=== PATIENT | male | born 1940 | race Caucasian/White ===

== ENCOUNTER 2017-07-14 07:58 | Day surgery (SDC) | payer MEDICARE, BC ==
[~2017-07-14] VITALS: Ht 175.3 cm; Wt 121.8 kg
[~2017-07-14 07:58] MED LIST: ATOR10 PO; BENA20 PO; CHOL10002 PO; CYAN500; Cialis20 MG PO; DIABETIC VITAMIN; FURO40 PO; GLYB5 PO; Humalog100 UNIT/1 SC; INSULANI SC; INSULANPEN SC; IRON256 MG; K-Dur20 MEQ; LOSA50 PO; LOSHYD PO; METF500 PO; METO2.5 PO; Magnesium500 MG; OMEG1CAP30 PO; PIOG45 PO
[2017-07-14] MEDS ORDERED: ASPI81CH (08:36)
== END 2017-07-14 10:38 | disposition home or self-care (01) ==
LOC: ORSCSDS 07:58
PROVIDERS: Internal Medicine Gastroenterology
PROC: 0DBL8ZX Excision of Transverse Colon, Via Natural or Artificial Opening Endoscopic, Diagnostic (ICD-10-PCS; principal; 2017-07-14 09:15)
DX: Z12.11 Encounter for screening for malignant neoplasm of colon (principal); D12.3 Benign neoplasm of transverse colon; K64.8 Other hemorrhoids; K57.30 Diverticulosis of large intestine without perforation or abscess without bleeding; Z85.038 Personal history of other malignant neoplasm of large intestine; Z86.010 Personal history of colon polyps; I10 Essential (primary) hypertension; E11.9 Type 2 diabetes mellitus without complications; I50.9 Heart failure, unspecified; E78.5 Hyperlipidemia, unspecified; Z95.0 Presence of cardiac pacemaker; Z87.891 Personal history of nicotine dependence; Z79.4 Long term (current) use of insulin; Z79.899 Other long term (current) drug therapy
CPT/HCPCS: 82947; 88305; J1980; J7120

== ENCOUNTER 2017-08-21 10:10 | Observation (INO) | payer MEDICARE, BC ==
[~2017-08-21] VITALS: Ht 175.3 cm; Wt 128.8 kg
[~2017-08-21 10:10] MED LIST changes: +ASPI81CH
[2017-08-21 11:34] LABS: BASOPHILS ABSOLUTE AUTO 0.03 K/mm3 (0.00-0.23); BASOPHILS PERCENT AUTO 0 % (0-2); EOSINOPHILS ABSOLUTE AUTO 0.14 K/mm3 (0.00-0.68); EOSINOPHILS PERCENT AUTO 2 % (0-6); Hematocrit 40.3 % (37.0-53.0); Hemoglobin 13.4 g/dL (13.5-17.5); IMMATURE GRAN ABSOLUTE AUTO 0.02 K/mm3 (0.00-0.10); IMMATURE GRAN PERCENT AUTO 0 % (0-1); LYMPHOCYTES ABSOLUTE AUTO 1.52 K/mm3 (0.84-5.20); LYMPHOCYTES PERCENT AUTO 21 % (21-46); MONOCYTES ABSOLUTE AUTO 0.67 K/mm3 (0.16-1.47); MONOCYTES PERCENT AUTO 9 % (4-13); Mean Corpuscular HGB 28.9 pg (26.0-34.0); Mean Corpuscular HGB Conc 33.3 g/dL (31.5-36.5); Mean Corpuscular Volume 87 fL (80-100); Mean Platelet Volume 9.7 fL (9.1-12.4); NEUTROPHILS ABSOLUTE AUTO 4.95 K/mm3 (1.96-9.15); NEUTROPHILS PERCENT AUTO 68 % (41-73); Platelet Count 263 K/mm3 (150-400); RDW Coefficient Variation 14.5 % (11.7-14.2); RDW Standard Deviation 45.7 fL (35.1-46.3); Red Blood Cell Count 4.64 M/mm3 (4.30-5.90); White Blood Cell Count 7.33 K/mm3 (4.00-11.30)
[2017-08-21] MEDS ORDERED: LOSA50 PO (11:47)
[2017-08-21] MEDS ORDERED: PIOG15 PO (11:47)
[2017-08-21 11:50] LABS: Alanine Aminotransfer (ALT/SGP 42 U/L (12-78); Albumin, Blood 3.8 g/dL (3.4-5.0); Albumin/Globulin Ratio 0.9 (0.8-1.8); Alk Phos 68 U/L (50-136); Anion Gap 10 mmol/L (6-16); Aspartate Aminotrans (AST/SGOT 31 U/L (12-37); Bilirubin, Total 0.8 mg/dL (0.1-1.0); Blood Urea Nitrogen 24 mg/dL (8-24); Bun/Creatinine Ratio 24.1 (12.0-20.0); CO2, Blood 29 mmol/L (21-32); Chloride, Blood 98 mmol/L (98-108); Globulin, Blood 4.2 g/dL (2.2-4.0); Glomerular Filtration Rate >60 (60-); Glucose, Blood 124 mg/dL (70-99); Potassium, Blood 3.3 mmol/L (3.5-5.5); Sodium, Blood 137 mmol/L (136-145); Troponin I <0.015 ng/mL (0.000-0.040)
[2017-08-22 05:35] LABS: Anion Gap 13 mmol/L (6-16); Blood Urea Nitrogen 28 mg/dL (8-24); Bun/Creatinine Ratio 25.5 (12.0-20.0); CO2, Blood 26 mmol/L (21-32); Calcium, Blood 8.6 mg/dL (8.5-10.1); Chloride, Blood 97 mmol/L (98-108); Glomerular Filtration Rate >60 (60-); Glucose, Blood 286 mg/dL (70-99); Potassium, Blood 4.4 mmol/L (3.5-5.5); Sodium, Blood 136 mmol/L (136-145)
[2017-08-22] MEDS ORDERED: CARV6.25 PO (15:37)
[2017-08-22] MEDS ORDERED: ALBU90OI61 INH (15:37)
[2017-08-22] MEDS ORDERED: DULERA 200 MCG/13 GM INH (15:38)
== END 2017-08-22 16:25 | disposition home or self-care (01) ==
LOC: ER 10:10 → MEDS 10:11 → ENPENDDIS 08-22 15:36 → MEDS 08-22 16:25
PROVIDERS: Hospitalist; Physician Assistant
DX: R06.09 Other forms of dyspnea (principal); R09.02 Hypoxemia; I10 Essential (primary) hypertension; E11.9 Type 2 diabetes mellitus without complications; R91.1 Solitary pulmonary nodule; J44.9 Chronic obstructive pulmonary disease, unspecified; J84.9 Interstitial pulmonary disease, unspecified; E78.00 Pure hypercholesterolemia, unspecified; Z86.010 Personal history of colon polyps; Z88.0 Allergy status to penicillin; Z88.8 Allergy status to other drugs, medicaments and biological substances; Z79.82 Long term (current) use of aspirin; Z79.4 Long term (current) use of insulin; Z79.899 Other long term (current) drug therapy; Z87.891 Personal history of nicotine dependence; Z86.718 Personal history of other venous thrombosis and embolism; Z98.42 Cataract extraction status, left eye; Z96.1 Presence of intraocular lens; Z95.0 Presence of cardiac pacemaker; Z98.890 Other specified postprocedural states; Z85.038 Personal history of other malignant neoplasm of large intestine
CPT/HCPCS: 36415; 71046; 71260; 80048; 80053; 82947; 83880; 84484; 85025; 93005; 93010; 93306; 94640; 94760; 96372; 96374; 96376; 99285; G0378; J1650; J1815; J1817; J2920; Q9967

== ENCOUNTER 2019-02-24 08:34 | Day surgery (SDC) | payer MEDICARE ==
[~2019-02-24] VITALS: Ht 175.3 cm; Wt 121.4 kg
[~2019-02-24 08:34] MED LIST changes: +ALBU90OI61 INH; +CARV6.25 PO; +DULERA 200 MCG/13 GM INH; +ENTRESTO 97 MG1 EACH; +METO25ER; +PIOG15 PO
--- NOTE | 2019-02-24 09:58 | NUR ---
02/24/19 0958 Penny Vicente (Ericka BLOOD SUGAR OF [address] LÓPEZ & DR. OLIVO NOTIFIED. DR. LÓPEZ ORDERED 12.5G DEXTROSE 50% IVP. PT DENIES SYMPTOMS, STATES "I FEEL FINE."
== END 2019-02-24 11:50 | disposition home or self-care (01) ==
LOC: ORSCSDS 08:34
PROVIDERS: Internal Medicine Gastroenterology
PROC: 0DBL8ZX Excision of Transverse Colon, Via Natural or Artificial Opening Endoscopic, Diagnostic (ICD-10-PCS; principal; 2019-02-24 10:00)
DX: Z85.038 Personal history of other malignant neoplasm of large intestine (principal); D12.3 Benign neoplasm of transverse colon; K57.30 Diverticulosis of large intestine without perforation or abscess without bleeding; K64.8 Other hemorrhoids; Z86.010 Personal history of colon polyps; E11.9 Type 2 diabetes mellitus without complications; I50.9 Heart failure, unspecified; I10 Essential (primary) hypertension; E78.5 Hyperlipidemia, unspecified; Z95.0 Presence of cardiac pacemaker; Z79.4 Long term (current) use of insulin; Z79.899 Other long term (current) drug therapy; Z87.891 Personal history of nicotine dependence
CPT/HCPCS: 82947; 88305; J2704; J7120; J7799

== ENCOUNTER 2020-04-26 12:45 | Day surgery (SDC) | payer MEDICARE ==
[~2020-04-26] VITALS: Ht 175.3 cm; Wt 116.4 kg
[~2020-04-26 12:45] MED LIST changes: +BASAGLAR K100 UNIT/1; -ENTRESTO 97 MG1 EACH; +ENTRESTO 97 MG1 EACH PO; +FURO20 PO; -INSULANPEN SC; +LOVAZA PO; -METO25ER; +METO25ER PO
--- NOTE | 2020-04-26 14:27 | NUR ---
04/26/20 1427 Gisele Maxwell 2CC NS INSTILLED FOR TRANSVERSE POLYP REMOVAL
== END 2020-04-26 14:47 | disposition home or self-care (01) ==
LOC: ORSCSDS 12:45
PROVIDERS: Internal Medicine Gastroenterology
PROC: 0DBL8ZX Excision of Transverse Colon, Via Natural or Artificial Opening Endoscopic, Diagnostic (ICD-10-PCS; principal; 2020-04-26 15:00)
DX: Z86.010 Personal history of colon polyps (principal); Z85.038 Personal history of other malignant neoplasm of large intestine; D12.3 Benign neoplasm of transverse colon; E11.319 Type 2 diabetes mellitus with unspecified diabetic retinopathy without macular edema; E11.29 Type 2 diabetes mellitus with other diabetic kidney complication; I10 Essential (primary) hypertension; E78.5 Hyperlipidemia, unspecified; N28.9 Disorder of kidney and ureter, unspecified; Z95.0 Presence of cardiac pacemaker; Z79.4 Long term (current) use of insulin; Z79.84 Long term (current) use of oral hypoglycemic drugs; Z79.899 Other long term (current) drug therapy; Z87.891 Personal history of nicotine dependence; J44.9 Chronic obstructive pulmonary disease, unspecified; Z99.81 Dependence on supplemental oxygen
CPT/HCPCS: 82947; 88305; J2704; J7120

== ENCOUNTER → 2021-06-27 | Outpatient (CLI) | payer MEDICARE | LOC: LAB SHORT 18:14 | DX: L08.9 Local infection of the skin and subcutaneous tissue, unspecified (principal); L57.8 Other skin changes due to chronic exposure to nonionizing radiation; L85.3 Xerosis cutis; Z48.02 Encounter for removal of sutures | CPT/HCPCS: 87070; 87077; 87147; 87186; 87205 ==

== ENCOUNTER 2021-08-23 09:23 | Day surgery (SDC) | payer MEDICARE ==
[~2021-08-23] VITALS: Ht 175.3 cm; Wt 108.6 kg
[~2021-08-23 09:23] MED LIST changes: -ASPI81CH; +ASPI81CH PO; -CHOL10002 PO; +VITAMIN D31000 UNI1 PO
[2021-08-23] MEDS ORDERED: MAGNESIUM OXID500 MG PO (10:19)
[2021-08-23] MEDS ORDERED: FURO80 PO (10:20)
[2021-08-23] MEDS ORDERED: POTA10T PO (10:21)
[2021-08-23] MEDS ORDERED: OMEGA-3 FISH O1 EAC6 PO (10:22)
[2021-08-23] MEDS ORDERED: NOVOLOG100 UNIT/2 SC (10:24)
[2021-08-23] MEDS ORDERED: BASAGLAR K100 UNIT/1 SC (10:25)
--- NOTE | 2021-08-23 12:30 | NUR ---
PATIENT RETURNED TO [facility] RECOVERY ROOM A&O. DENIES DISCOMFORT. LEFT PACER SITE DRESSING D&I. NO HEMATOMA, NO BLEEDING. ICE PACK PLACED TO SITE
--- NOTE | 2021-08-23 14:20 | NUR ---
DISCHARGE INSTRUCTIONS ANDPRECAUTIONS DISCUSSED WITH PATIENT. PATIENT VERBALIZED UNDERSTANDING. IV SITE DCED WITH CATHETER IN TACT. LEFT PACER POCKET SOFT AND NONTENDER, NO BRUISING, NO HEMATOMA, NO BLEEDING.
--- NOTE | 2021-08-23 14:40 | NUR ---
PATIENT DISCHARGE HOME. TAKEN TO WAITING CAR VIA WHEELCHAIR BY ERMA CALVIN. LEFT UPPER PACER POCKET SITE UNCHANGED. NO FURTHER QUESTIONS
== END 2021-08-23 14:30 | disposition home or self-care (01) ==
LOC: MHTC 09:23
DX: Z45.010 Encounter for checking and testing of cardiac pacemaker pulse generator [battery] (principal); I42.8 Other cardiomyopathies; I11.0 Hypertensive heart disease with heart failure; I50.9 Heart failure, unspecified; E11.3599 Type 2 diabetes mellitus with proliferative diabetic retinopathy without macular edema, unspecified eye; I25.10 Atherosclerotic heart disease of native coronary artery without angina pectoris; E78.5 Hyperlipidemia, unspecified; E66.9 Obesity, unspecified; Z68.35 Body mass index [BMI] 35.0-35.9, adult; Z79.4 Long term (current) use of insulin; Z88.0 Allergy status to penicillin; Z88.8 Allergy status to other drugs, medicaments and biological substances
CPT/HCPCS: 33228; 99152; 99153; C1781; C1785; J1580; J1644; J2250; J3010; J3370; J7040

== ENCOUNTER 2021-11-17 08:52 | Emergency (ER) | payer MEDICARE ==
[~2021-11-17] VITALS: Ht 175.3 cm; Wt 104.3 kg
[~2021-11-17 08:52] MED LIST changes: +BASAGLAR K100 UNIT/1 SC; +FURO80 PO; +MAGNESIUM250 MG PO; -METO2.5 PO; +METO5 PO; +NOVOLOG100 UNIT/2 SC; +OMEGA-3 FISH O1 EAC6 PO; +POTA10T PO
[2021-11-17] MEDS ORDERED: Prednisone20 MG PO (10:59)
[2021-11-17] MEDS ORDERED: ALBU90OI INH (10:59)
== END 2021-11-17 11:18 | disposition home or self-care (01) ==
LOC: ER 08:52
DX: R06.00 Dyspnea, unspecified (principal); I11.0 Hypertensive heart disease with heart failure; I50.20 Unspecified systolic (congestive) heart failure; E11.9 Type 2 diabetes mellitus without complications; Z88.0 Allergy status to penicillin; Z88.8 Allergy status to other drugs, medicaments and biological substances; Z79.82 Long term (current) use of aspirin; Z79.4 Long term (current) use of insulin; Z79.899 Other long term (current) drug therapy; Z95.0 Presence of cardiac pacemaker
CPT/HCPCS: 78580; A9540

== ENCOUNTER 2022-09-16 19:03 | Inpatient (IN) | payer MEDICARE ==
[~2022-09-16] VITALS: Ht 177.8 cm; Wt 100.0 kg
[~2022-09-16 19:03] MED LIST changes: +ALBU90OI INH; +Prednisone20 MG PO
[2022-09-16] MEDS ORDERED: ENTRESTO 49 MG1 EACH PO (19:44)
[2022-09-16] MEDS ORDERED: ELIQUIS2.5 MG PO (19:45)
[2022-09-16] MEDS ORDERED: TRAZ50 PO (19:45)
[2022-09-16 19:54] LABS: BASOPHILS ABSOLUTE AUTO 0.03 K/mm3 (0.00-0.23); BASOPHILS PERCENT AUTO 1 % (0-2); EOSINOPHILS PERCENT AUTO 2 % (0-6); Hemoglobin 8.4 g/dL (13.5-17.5); IMMATURE GRAN ABSOLUTE AUTO 0.03 K/mm3 (0.00-0.10); IMMATURE GRAN PERCENT AUTO 1 % (0-1); LYMPHOCYTES ABSOLUTE AUTO 0.84 K/mm3 (0.84-5.20); LYMPHOCYTES PERCENT AUTO 15 % (21-46); MONOCYTES ABSOLUTE AUTO 0.67 K/mm3 (0.16-1.47); MONOCYTES PERCENT AUTO 12 % (4-13); Mean Corpuscular HGB 27.2 pg (26.0-34.0); Mean Corpuscular HGB Conc 32.3 g/dL (31.5-36.5); Mean Corpuscular Volume 84 fL (80-100); Mean Platelet Volume 9.3 fL (9.1-12.4); NEUTROPHILS ABSOLUTE AUTO 4.04 K/mm3 (1.96-9.15); NEUTROPHILS PERCENT AUTO 71 % (41-73); Platelet Count 268 K/mm3 (150-400); RDW Coefficient Variation 19.5 % (11.7-14.2); Red Blood Cell Count 3.09 M/mm3 (4.30-5.90); White Blood Cell Count 5.71 K/mm3 (4.00-11.30)
[2022-09-16 20:17] LABS: Magnesium, Blood 3.2 mg/dL (1.6-2.4)
[2022-09-16 20:18] LABS: Albumin, Blood 3.3 g/dL (3.4-5.0); Albumin/Globulin Ratio 0.9 (0.8-1.8); Bilirubin, Total 0.3 mg/dL (0.1-1.0); Bun/Creatinine Ratio 59.7 (12.0-20.0); Calcium, Blood 8.8 mg/dL (8.5-10.1); Creatinine, Blood 2.06 mg/dL (0.60-1.20); Globulin, Blood 3.5 g/dL (2.2-4.0); Phosphorus, Blood 3.9 mg/dL (2.5-4.9); Potassium, Blood 4.1 mmol/L (3.5-5.5); Total Protein, Blood 6.8 g/dL (6.4-8.2)
[2022-09-16 22:50] LABS: Source, Urine Foley catheter
[2022-09-16 22:53] LABS: Bilirubin, Urine Neg (Neg); Blood, Urine Neg (Neg); Glucose Qualitative, Urine Neg (Neg); Ketones, Urine Neg (Neg); Leukocyte Esterase, Urine Neg (Neg); Nitrite, Urine Neg (Neg); Protein, Urine Neg (Neg); Urobilinogen, Urine NORM (Normal)
[2022-09-16 23:23] LABS: Appearance, Urine Clear (Clear); Color, Urine Pale Yellow (P-Yellow)
[2022-09-17 03:25] LABS: BASOPHILS ABSOLUTE AUTO 0.02 K/mm3 (0.00-0.23); BASOPHILS PERCENT AUTO 0 % (0-2); EOSINOPHILS ABSOLUTE AUTO 0.07 K/mm3 (0.00-0.68); EOSINOPHILS PERCENT AUTO 1 % (0-6); Hematocrit 25.1 % (37.0-53.0); IMMATURE GRAN ABSOLUTE AUTO 0.02 K/mm3 (0.00-0.10); IMMATURE GRAN PERCENT AUTO 0 % (0-1); LYMPHOCYTES ABSOLUTE AUTO 0.61 K/mm3 (0.84-5.20); LYMPHOCYTES PERCENT AUTO 10 % (21-46); MONOCYTES ABSOLUTE AUTO 0.74 K/mm3 (0.16-1.47); MONOCYTES PERCENT AUTO 12 % (4-13); Mean Corpuscular HGB 27.3 pg (26.0-34.0); Mean Corpuscular HGB Conc 31.9 g/dL (31.5-36.5); Mean Corpuscular Volume 86 fL (80-100); Mean Platelet Volume 9.3 fL (9.1-12.4); NEUTROPHILS ABSOLUTE AUTO 4.92 K/mm3 (1.96-9.15); NEUTROPHILS PERCENT AUTO 77 % (41-73); Platelet Count 247 K/mm3 (150-400); RDW Coefficient Variation 19.5 % (11.7-14.2); RDW Standard Deviation 61.6 fL (35.1-46.3); Red Blood Cell Count 2.93 M/mm3 (4.30-5.90); White Blood Cell Count 6.38 K/mm3 (4.00-11.30)
[2022-09-17 04:01] LABS: Albumin, Blood 2.9 g/dL (3.4-5.0); Bilirubin, Total 0.3 mg/dL (0.1-1.0); Bun/Creatinine Ratio 56.1 (12.0-20.0); Calcium, Blood 8.5 mg/dL (8.5-10.1); Creatinine, Blood 1.73 mg/dL (0.60-1.20); Globulin, Blood 2.9 g/dL (2.2-4.0); Total Protein, Blood 5.8 g/dL (6.4-8.2)
--- NOTE | 2022-09-17 06:17 | NUR ---
SHIFT SUMMARY: Upon arrival to unit, patient was drowsy but easy to arouse. Oriented to his name and knows he is in the hospital but is unsure why and was not able to articulate his birthday. Due to mental status, admission history and med rec not completed. went home for the evening, plans to return in the AM. At 0000, pt became more hypotensive. Order for levophed received from Dr. Slade. As of 0600, levophed is running at 6mcg through peripheral line. MAPs maintained at 65. When patient is awake, BPs improve. Follow up EKG this morning showed QTC of 557 down from 571, however since his rhythm is V-paced with a wide QRS, his QTc may be prolonged at baseline.
--- NOTE | 2022-09-17 14:32 | NUR ---
Spiritual Care Visit. Pt. is awake and welcomes my visit. Spouse is present. Pt. is unsettled about being hospitalized. Through theraputic listening and a calming presence Pt. displays evidence of mild confusion, but has robust sense of humor. Facilitate a short life review, and consider matters of cherri and belief. Prayed with Pt. and Spouse. Both verbalized gratitude for the spiritual care visit.
--- NOTE | 2022-09-17 17:35 | NUR ---
SHIFT SUMMARY NO ACUTE CHANGES THIS SHIFT. PT IS MORE ALERT THIS AFTERNOON, BUT REMAINS DROWSEY WHEN NOT STIMULATED WITH STAFF OR FAMILY AT BEDSIDE. PT ANSWER SOME QUESTIONS APPROPRIATELY. PT FORGETFUL/CONFUSED AT TIMES. PT DENIES PAIN OR SOB. PT ON ROOM AIR. VITAL SIGNS STABLE. LEVOPHED TITRATED OFF THIS MORNING. PT TAKING PO FLUIDS WELL. ROSALES REMAINS IN PLACE WITH CLEAR YELLOW OUTPUT NOTED. POISON CONTROL UPDATED THIS MORNING, NO OTHER RECOMENDATIONS FOR PLAN OF CARE. PT SPOUSE AT BEDSIDE THIS AFTERNOON. WILL CONTINUE TO MONITOR AND REPORT OFF TO ONCOMING RN.
[2022-09-18 03:47] LABS: BASOPHILS ABSOLUTE AUTO 0.03 K/mm3 (0.00-0.23); BASOPHILS PERCENT AUTO 0 % (0-2); EOSINOPHILS ABSOLUTE AUTO 0.08 K/mm3 (0.00-0.68); EOSINOPHILS PERCENT AUTO 1 % (0-6); Hematocrit 28.3 % (37.0-53.0); Hemoglobin 9.3 g/dL (13.5-17.5); IMMATURE GRAN ABSOLUTE AUTO 0.03 K/mm3 (0.00-0.10); IMMATURE GRAN PERCENT AUTO 0 % (0-1); LYMPHOCYTES PERCENT AUTO 5 % (21-46); MONOCYTES ABSOLUTE AUTO 1.16 K/mm3 (0.16-1.47); MONOCYTES PERCENT AUTO 11 % (4-13); Mean Corpuscular HGB 28.2 pg (26.0-34.0); Mean Corpuscular HGB Conc 32.9 g/dL (31.5-36.5); Mean Corpuscular Volume 86 fL (80-100); Mean Platelet Volume 9.6 fL (9.1-12.4); NEUTROPHILS PERCENT AUTO 82 % (41-73); Platelet Count 298 K/mm3 (150-400); RDW Coefficient Variation 19.6 % (11.7-14.2); RDW Standard Deviation 61.1 fL (35.1-46.3)
[2022-09-18 04:04] LABS: Albumin, Blood 2.9 g/dL (3.4-5.0); Albumin/Globulin Ratio 0.8 (0.8-1.8); Bilirubin, Total 0.5 mg/dL (0.1-1.0); Bun/Creatinine Ratio 47.7 (12.0-20.0); Calcium, Blood 8.8 mg/dL (8.5-10.1); Creatinine, Blood 1.28 mg/dL (0.60-1.20); Globulin, Blood 3.6 g/dL (2.2-4.0); Magnesium, Blood 2.8 mg/dL (1.6-2.4); Total Protein, Blood 6.5 g/dL (6.4-8.2)
--- NOTE | 2022-09-18 05:36 | NUR ---
SHIFT SUMMARY: NO ACUTE CHANGES THIS SHIFT. PT REMAINS A&O X 2-3 AND VERY PLEASANT AND COOPERATIVE WITH CARE. PT WAS ABLE TO SLEEP THROUGHOUT THE NIGHT. PT ON LEVO GTT @ 2 MCG TO MAINTAIN MAP 65<; CURRENTLY SBP 120'S AND MAP 70<. PT ON RA AND ALL OTHER VS STABLE THROUGHOUT THE NIGHT. ON MONITOR PT IS VENT PACED WITH HR 80-90 WITH OCCASIONAL PVC'S. PT HAS ROSALES IN PLACE AND DRAINING TO GRAVITY WITH CLEAR, LIGHT YELLOW URINE. CBG ORDERS IN AND GLUCOSE MAINTAINING AROUND 200-220; ANGELA NOTIFIED AND VERBAL ORDERS RECIEVED FOR INSULIN COVERAGE, SEE EMAR. POISEN CONTROL UPDATED ON PT'S STATUS TONIGHT AND NO NEW INTERVENTIONSR RECIEVED AT THIS TIME. WILL CONTINUE TO MONIOT UNTIL ONCOMING RN ARRIVES.
--- NOTE | 2022-09-18 16:37 | NUR ---
SHIFT SUMMARY NO ACUTE CHANGES THIS SHIFT. PT AWAKE AND ENGAGED WHEN IN THE ROOM. PT RESTING QUIETLY OTHERWISE. PT ANSWERS MOST QUESTIONS APPROPRIATELY, BUT IS MORE CONFUSED THIS AFTERNOON, NEEDING FREQUENT REORIENTATION. VITAL SIGNS STABLE. PT ON ROOM AIR. PT OFF LEVOPHED THROUGHOUT THE SHIFT. PT TAKING PO FLUIDS WELL AND SOME FOODS. PT WITH POOR APPETITE. IV'S SALINE LOCKED. ROSALES REMAINS IN PLACE WITH YELLOW OUTPUT NOTED. PT UP TO RECLINER CHAIR WITH PT/OT THIS AFTERNOON. PT SPOUSE AT BEDSIDE OFF AND ON THROUGHOUT THE SHIFT. WILL CONTINUE TO MONITOR AND REPORT OFF TO ONCOMING RN.
--- NOTE | 2022-09-18 19:52 | NUR ---
ASSUMED CARE AT 1900 PATIENT ALERT AND ORIENTED X3, FORGETFUL AT TIMES, HX DEMENTIA. 02 SATS >95% ON RA, DENIES SOB. HR PACED 90-110. BP STABLE, HYPOTENSIVE AT TIMES, PER REPORT THIS IS BASELINE AT HOME, MAP >60. ROSALES PATENT AND DRAINING TO GRAVITY, CLEAR YELLOW OUTPUT. CALL LIGHT IN REACH
--- NOTE | 2022-09-18 20:55 | NUR ---
PATIENT TO ROOM 306, WILL CALL AND NOTIFY HER OF ROOM CHANGE
--- NOTE | 2022-09-19 04:53 | NUR ---
SHIFT NOTE PATIENT REMAINED AWAKE FOR MOST OF THE NIGHT, ORIENTED TO SELF AND FAMILY, AUDITORY AND VISUAL HALLUCINATIONS, CALLIMG OUT FOR HIS , NEEDING CONSTANT REORIENTATION. H AND P NOTES A SMALL HIATAL HERNIA, BUT DOES NOT MENTION ACTIAL SIZE. HERNIA IS PRESENTING LARGE, ABOUT THE SOZE OF A GRAPEFRUIT, NO PAIN FROM SITE. PATIENT REPORTS SEVERE HAND AND WRIST PAIN, IV FENTANYL ADMINISTERES WITH SOME REULTS. BED ALARM USES PATIENT IS UNSTEADY ON HIS FEET, REQUIRING 2X ASSIST TO BSC. INC/CONT OF STOOL, 1X LOOSE, FC DRAINING TO GRAVITY. NO OTHER ISSUES TO REPORT.
--- NOTE | 2022-09-19 17:39 | NUR ---
SHIFT SUMMARY: PT A&O X2-3. ANESTHESIOLOGIST/PHYSICIAN REPORTS SUNDOWNERS AND ANXIOUS DURING NIGHT. PT ASKS REPEATED QUESTIONS SEVERAL TIMES THROUGHOUT SHIFT. NO ACUTE CHANGES WITH PT THIS SHIFT. NO C/O PAIN OR N/V. PT HAD SMALL LOOSE STOOL THIS AM. VSS BESIDES SLIGHTLY HYPOTENSIVE. PT RECEIVING MIDODRINE TID. ROSALES IN PLACE DRAINING YELLOW URINE TO GRAVITY. TELE IN PLACE W/PACEMAKER. NO C/O ISSUES W/ MEDIPORT. NO HALLUCINATIONS THIS SHIFT. CALL LIGHT IN REACH. BED IN LOWEST POSITION. WILL CONTINUE TO MONITOR.
--- NOTE | 2022-09-20 05:00 | NUR ---
SHIFT SUMMARY PATIENT HAD NO ACUTE CHANGES. AXOX 3 WITH CONFUSION AT TIMES. HX OF DEMENTIA AND SUNDOWNING. ONE ASSIST WITH GB FWW TO BR. SOB W/EXERTION. O2 2L PRN WHEN UP AND MOVING. [place]. ON TELEMETRY PACED 98. CBG 290. MEDIPORT INTACT. SOFT BP'S/AFEBRILE. DENIES CHEST PAIN AND N/V. ROSALES PATENT AND DRAINING TO GRAVITY. NO HALLUCINATIONS OBSERVED. DAUGHTER CALLED FROM [place] AND REPORTS SHE IS AN RT. CALL LIGHT IN REACH. BE IN LOWEST POSITION. WILL CONTINUE TO MONITOR UNTIL DAY SHIFT NURSE ASSUMES CARE.
--- NOTE | 2022-09-20 18:03 | NUR ---
SHIFT SUMMARY PATIENT MEDICATED FOR PAIN X1, PATIENT DENIES NAUSEA AND SHORTNESS OF BREATH. PATIENT WORKED WITH PT TODAY, SEE NOTES. PATIENT HAD MANY FAMILY MEMBERS AT BEDSIDE THROUGHOUT SHIFT. PATIENT REPORTS ARMS PAINFUL AND "HEAVY". PATIENT WAS UNABLE TO FEED HIMSELF, STAFF ASSISTED WITH MEALS. PATIENT ATE WELL THROUGHOUT THE DAY. ROSALES IS PATENT AND DRAINING TO GRAVITY. PATIENT IS PLEASANT AND COOPERATIVE WITH CARE.
--- NOTE | 2022-09-21 04:46 | NUR ---
SHIFT SUMMARY PATIENT HAD NO ACUTE CHANGES. AXOX 3 AND ONE ASSIST W/FWW GB TO BR. HX DEMENTIA. PIVS REMAIN INTACT. CBG 257. TELE MONITOR PACED @ 98. DENIES CHEST PAIN AND N/V. SOB WITH EXERTION USING O2 2L PRN WITH ACTIVITY. SLEPT MOST OF THE SHIFT. CALL LIGHT IN REACH. BED IN LOWEST POSITION. WILL CONTINUE TO MONITOR UNTIL DAY SHIFT NURSE ASSUMES CARE.
[2022-09-21 05:21] LABS: BASOPHILS ABSOLUTE AUTO 0.02 K/mm3 (0.00-0.23); BASOPHILS PERCENT AUTO 0 % (0-2); EOSINOPHILS ABSOLUTE AUTO 0.09 K/mm3 (0.00-0.68); EOSINOPHILS PERCENT AUTO 1 % (0-6); Hematocrit 24.8 % (37.0-53.0); IMMATURE GRAN ABSOLUTE AUTO 0.03 K/mm3 (0.00-0.10); IMMATURE GRAN PERCENT AUTO 0 % (0-1); LYMPHOCYTES ABSOLUTE AUTO 0.45 K/mm3 (0.84-5.20); LYMPHOCYTES PERCENT AUTO 5 % (21-46); MONOCYTES ABSOLUTE AUTO 1.15 K/mm3 (0.16-1.47); MONOCYTES PERCENT AUTO 12 % (4-13); Mean Corpuscular HGB 27.3 pg (26.0-34.0); Mean Corpuscular HGB Conc 32.3 g/dL (31.5-36.5); Mean Corpuscular Volume 85 fL (80-100); NEUTROPHILS ABSOLUTE AUTO 7.66 K/mm3 (1.96-9.15); NEUTROPHILS PERCENT AUTO 82 % (41-73); Platelet Count 282 K/mm3 (150-400); RDW Coefficient Variation 19.1 % (11.7-14.2); RDW Standard Deviation 59.4 fL (35.1-46.3); Red Blood Cell Count 2.93 M/mm3 (4.30-5.90)
[2022-09-21 05:48] LABS: Bun/Creatinine Ratio 41.4 (12.0-20.0); Calcium, Blood 8.3 mg/dL (8.5-10.1); Creatinine, Blood 1.4 mg/dL (0.60-1.20); Potassium, Blood 3.5 mmol/L (3.5-5.5)
--- NOTE | 2022-09-21 08:00 | NUR ---
pt laying in bed with odd breathing pattern, looks to be working hard and chin is trembling, he denies being sob, states it's just how I breath, denies pain, but is moaning, yells if hands are lightly touched, hands are very swollen and is unable to move them, he is able to slowly lift his arms, lungs are clear dim in bases, no cough noted, hrr, distant, 2+ edema noted to b/l le, hands are very swollen, strong radial pulses, piv site is clear and patent, btx4, hypoactive, abd flat soft nontender, voids via duncan at this time for retention, skin has dark intact skin to b/l le, ppp+1, cap refill <3sec, vs stable, low grade temp 99.9. room is very warm, richar, call light in reach.
--- NOTE | 2022-09-21 18:24 | NUR ---
pt has slept this afternoon, b/ps are still soft, family was in to visit, no acute changes this shift. call light in reach.
[2022-09-22 04:23] LABS: BASOPHILS ABSOLUTE AUTO 0.03 K/mm3 (0.00-0.23); BASOPHILS PERCENT AUTO 0 % (0-2); EOSINOPHILS ABSOLUTE AUTO 0.13 K/mm3 (0.00-0.68); EOSINOPHILS PERCENT AUTO 1 % (0-6); Hemoglobin 7.8 g/dL (13.5-17.5); IMMATURE GRAN ABSOLUTE AUTO 0.05 K/mm3 (0.00-0.10); IMMATURE GRAN PERCENT AUTO 1 % (0-1); LYMPHOCYTES ABSOLUTE AUTO 0.56 K/mm3 (0.84-5.20); LYMPHOCYTES PERCENT AUTO 6 % (21-46); MONOCYTES ABSOLUTE AUTO 1.02 K/mm3 (0.16-1.47); MONOCYTES PERCENT AUTO 11 % (4-13); Mean Corpuscular HGB 27.5 pg (26.0-34.0); Mean Corpuscular HGB Conc 32.5 g/dL (31.5-36.5); Mean Corpuscular Volume 85 fL (80-100); Mean Platelet Volume 9.3 fL (9.1-12.4); NEUTROPHILS ABSOLUTE AUTO 7.81 K/mm3 (1.96-9.15); NEUTROPHILS PERCENT AUTO 81 % (41-73); Platelet Count 277 K/mm3 (150-400); RDW Coefficient Variation 18.9 % (11.7-14.2); RDW Standard Deviation 58.3 fL (35.1-46.3); Red Blood Cell Count 2.84 M/mm3 (4.30-5.90)
--- NOTE | 2022-09-22 04:43 | NUR ---
SHIFT SUMMARY PATIENT HAD NO ACUTE CHANGES. AXOX 3 AND ONE ASSIST TO BSC. ROSALES PATENT AND DRAINING TO GRAVITY. PIVS REMAIN INTACT. CBG 234. TELE PACED @ 85. HANDS SWOLLEN. DENIES CHEST PAIN AND N/V. SOB W/EXERTION. USES 2L O2 PRN WHEN UP. SLEPT MOST OF THE SHIFT. CALL LIGHT IN REACH. BED IN LOWEST POSITION. WILL CONTINUE TO MONITOR UNTIL DAY SHIFT NURSE ASSUMES CARE.
[2022-09-22 04:59] LABS: Albumin, Blood 2.1 g/dL (3.4-5.0); Anion Gap 9 mmol/L (6-16); Blood Urea Nitrogen 77 mg/dL (8-24); Bun/Creatinine Ratio 41.8 (12.0-20.0); CO2, Blood 22 mmol/L (21-32); Calcium, Blood 8.5 mg/dL (8.5-10.1); Chloride, Blood 103 mmol/L (98-108); Creatinine, Blood 1.84 mg/dL (0.60-1.20); Glomerular Filtration Rate 36 (60-); Glucose, Blood 235 mg/dL (70-99); Phosphorus, Blood 4.8 mg/dL (2.5-4.9); Sodium, Blood 134 mmol/L (136-145)
--- NOTE | 2022-09-22 18:48 | NUR ---
SHIFT SUMMARY: PLACED PT BACK ON HIS OXYGEN AT 2 L/MIN NC, WHICH IS HIS BASELINE. WAS CONFUSED AND ANXIOUS MOST OF THIS SHIFT. AFTER DR. POP EVALUATED HIM AT [facility], LABS AND NEW MEDICATIONS ORDERED. WAS TACHYPNEIC AND WAS "TEETH CHATTERING" WITH EACH BREATH. TEMPORAL TEMP WAS 101.1, BUT ORAL WAS 98.9. HANDS, ARMS, AND L SHOULDER QUITE PAINFUL; WAS GIVEN TYLENOL AND TRAMADOL, ALONG WITH ATARAX FOR ANXIETY, WHICH ALMOST COMPLETELY RELIEVED HIS PAIN. UNABLE TO WORK WITH PT/OT TODAY D/T PAIN. BP STILL SOFT, RECEIVING MIDODRINE WITHOUT APPRECIABLE CHANGE. TELEMETRY SHOWED V PACED RHYTHM IN THE 90'S WITH PVC'S. AT BEDSIDE MOST OF THIS SHIFT, RECEIVED PERMISSION FROM ACTIVE DIRECTORY SYSTEMS ADMINISTRATOR FOR HER TO SPEND THE NIGHT.
--- NOTE | 2022-09-23 05:26 | NUR ---
SUMMARY: PATIENT BP LOW AT START OF SHIFT. NOTIFIED DR. CARLIN RECIEVED ORDERS FOR 500CC BOLUS AND ONE TIME DOSE OF MIDODRINE. BP SLIGHTLY IMPROVED AFTER WITH MAP >60. RECIEVED NEW PARAMETERS TO NOTIFY IF MAP <60. PATIENT HAD A VERY LARGE LIQUID BM, STOOL SOFTENERS HELD. TURNED PATIENT IN BED Q2 HR. BLE ULTRASOUND DONE OVERNGIHT. PLAN FOR ACTH STUDY THIS AM AROUND 0800. CT CALLED TO CLARIFY IF HAND CT WAS NEEDED IT WAS PUT ON HOLD YEST. WILL PASS MESSAGE ON TO CLARIFY ORDER FOR DAY SHIFT MD. CALL LIGHT IN REACH PATIENT PLEASANT WITH THIS RN, AT BEDSIDE THROUGHOUT NIGHT.
[2022-09-23 07:36] LABS: BASOPHILS ABSOLUTE AUTO 0.02 K/mm3 (0.00-0.23); BASOPHILS PERCENT AUTO 0 % (0-2); EOSINOPHILS ABSOLUTE AUTO 0.14 K/mm3 (0.00-0.68); EOSINOPHILS PERCENT AUTO 2 % (0-6); Hematocrit 23.2 % (37.0-53.0); Hemoglobin 7.6 g/dL (13.5-17.5); IMMATURE GRAN ABSOLUTE AUTO 0.05 K/mm3 (0.00-0.10); IMMATURE GRAN PERCENT AUTO 1 % (0-1); LYMPHOCYTES ABSOLUTE AUTO 0.52 K/mm3 (0.84-5.20); LYMPHOCYTES PERCENT AUTO 5 % (21-46); MONOCYTES PERCENT AUTO 10 % (4-13); Mean Corpuscular HGB 27.7 pg (26.0-34.0); Mean Corpuscular HGB Conc 32.8 g/dL (31.5-36.5); Mean Corpuscular Volume 85 fL (80-100); Mean Platelet Volume 9.9 fL (9.1-12.4); NEUTROPHILS ABSOLUTE AUTO 7.88 K/mm3 (1.96-9.15); NEUTROPHILS PERCENT AUTO 82 % (41-73); Platelet Count 302 K/mm3 (150-400); RDW Standard Deviation 58.7 fL (35.1-46.3); Red Blood Cell Count 2.74 M/mm3 (4.30-5.90); White Blood Cell Count 9.61 K/mm3 (4.00-11.30)
[2022-09-23 07:54] LABS: Albumin, Blood 1.9 g/dL (3.4-5.0); Albumin/Globulin Ratio 0.5 (0.8-1.8); Bilirubin, Total 0.6 mg/dL (0.1-1.0); Bun/Creatinine Ratio 42.4 (12.0-20.0); Calcium, Blood 8.5 mg/dL (8.5-10.1); Creatinine, Blood 2.24 mg/dL (0.60-1.20); Globulin, Blood 4.1 g/dL (2.2-4.0); Magnesium, Blood 2.7 mg/dL (1.6-2.4); Potassium, Blood 2.9 mmol/L (3.5-5.5)
[2022-09-23 12:32] LABS: Vancomycin, Random 18.4 ug/mL
--- NOTE | 2022-09-23 17:17 | NUR ---
MET WITH PT AND FAMLILY MEMBERS IN THE ROOM. PT IS SITTING UP IN BED, NOATAK BUT ENGAGED IN CONVERSATION. PT IS FRUSTRATED WITH HIS SLOW PROGRESS WITH PT. 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 HE C/O PAIN IN JOINTS AND PAIN/SWELLING IN BILATERAL HANDS. HE REPORTS HE CANT GOLD LAYER OR PICK ANYTHING UP. HE REPORTS HE WAS STARTED ON A NEW PAIN MEDICATION YESTERDAY, ULTRAM THAT SEEMED TO HELP. PT REPORTS HE HAS BEEN DOING HIM ROM EXERCISED WHILE IN BED WITH HIS HANDS, ARMS AND LEGS. HE IS MOTOIVIATED TO GET STRONGER SO HE CAN GO TO REHAB. PT TALKS ABOUT WHY HE IS IN THE HOSPITAL, ADMITS THAT HE MADE A DUMB MISTAKE BY TAKING TOO MUCXH OF HIS MEDICATION AND IS EMBARRASED. PROVIDED EMOTIONAL SUPPORT THAT MISTAKES HAPPEN AND WE NEED TO FOCUS ON TODAY AND GETTING HIM STRONGER. PT HAS SEVERAL FAMILY MEMBERS IN THE ROOM AND ARE SUPPORTIVE INCLUDING HIS . ADVISED PALLIATIVE CARE CAN HELP WITH SYMPTOM MANAGEMENT AND WILL CONTINUE TO FOLLOW HIM FOR PAIN MANAGEMENT. PT AND FAMILY ARE VERY APPRECIATIVE FOR MY VISIT AND PALLIATIVE CARE WILL CONTINUE TO FOLLOW AND PROVIDE SUPPORT.
--- NOTE | 2022-09-23 19:15 | NUR ---
SHIFT SUMMARY: NO ACUTE EVENTS. A&O X 2-3, FORGETFUL, UNALAKLEET. NO EVENTS ON TELEMETRY, V PACED IN 80-90'S. BP IMPROVED TODAY, MAP > 60. HAVING FREQUENT DIARRHEA; SPECIMEN SENT. ROSALES DRAINING ADEQUATE YELLOW URINE. STARTED ON PREDNISONE; CBG 369 BEFORE DINNER. PROVIDER NOTIFIED AND SSI CHANGED FROM LOW TO HIGH. NEWLY DISCOVERED DTI ON R HEEL; PHOTO IN CHART. EDEMA AND PAIN IN ALL EXTREMITIES HAS IMPROVED HAS HIS MOBILITY. MEDICATED FOR PAIN AND ANXIETY X 1. FAMILY AT BEDSIDE MOST OF THE DAY.
[2022-09-24 05:28] LABS: BASOPHILS ABSOLUTE AUTO 0.02 K/mm3 (0.00-0.23); BASOPHILS PERCENT AUTO 0 % (0-2); EOSINOPHILS PERCENT AUTO 0 % (0-6); Hematocrit 24.5 % (37.0-53.0); Hemoglobin 7.9 g/dL (13.5-17.5); IMMATURE GRAN ABSOLUTE AUTO 0.06 K/mm3 (0.00-0.10); IMMATURE GRAN PERCENT AUTO 1 % (0-1); LYMPHOCYTES ABSOLUTE AUTO 0.28 K/mm3 (0.84-5.20); LYMPHOCYTES PERCENT AUTO 3 % (21-46); MONOCYTES ABSOLUTE AUTO 0.62 K/mm3 (0.16-1.47); MONOCYTES PERCENT AUTO 6 % (4-13); Mean Corpuscular HGB 27.1 pg (26.0-34.0); Mean Corpuscular HGB Conc 32.2 g/dL (31.5-36.5); Mean Corpuscular Volume 84 fL (80-100); Mean Platelet Volume 9.7 fL (9.1-12.4); NEUTROPHILS ABSOLUTE AUTO 9.99 K/mm3 (1.96-9.15); NEUTROPHILS PERCENT AUTO 91 % (41-73); Platelet Count 368 K/mm3 (150-400); RDW Coefficient Variation 18.7 % (11.7-14.2); RDW Standard Deviation 57.9 fL (35.1-46.3); Red Blood Cell Count 2.91 M/mm3 (4.30-5.90); White Blood Cell Count 10.97 K/mm3 (4.00-11.30)
[2022-09-24 06:03] LABS: Alanine Aminotransfer (ALT/SGP 54 U/L (12-78); Albumin, Blood 1.9 g/dL (3.4-5.0); Albumin/Globulin Ratio 0.5 (0.8-1.8); Alk Phos 65 U/L (50-136); Anion Gap 11 mmol/L (6-16); Aspartate Aminotrans (AST/SGOT 50 U/L (12-37); Bilirubin, Total 0.4 mg/dL (0.1-1.0); Blood Urea Nitrogen 101 mg/dL (8-24); Bun/Creatinine Ratio 52.3 (12.0-20.0); CO2, Blood 17 mmol/L (21-32); Calcium, Blood 8.7 mg/dL (8.5-10.1); Chloride, Blood 106 mmol/L (98-108); Creatinine, Blood 1.93 mg/dL (0.60-1.20); Globulin, Blood 4.2 g/dL (2.2-4.0); Glomerular Filtration Rate 34 (60-); Glucose, Blood 331 mg/dL (70-99); Potassium, Blood 3.2 mmol/L (3.5-5.5); Sodium, Blood 134 mmol/L (136-145); Total Protein, Blood 6.1 g/dL (6.4-8.2); Vancomycin, Random 20.2 ug/mL
[2022-09-24 07:23] LABS: C DIFFICILE DNA NEGATIVE (Negative)
--- NOTE | 2022-09-24 19:12 | NUR ---
SHIFT SUMMARY- PT IS ALERT, PLESANT AND COOPERATIVE. THIS MORNING HE WAS IN THE CHAIR AND ATTEMPTED TO SLIDE OUT, HE REPORTED THAT HE NEEDED TO GET UP TO HAVE A BM. PT WAS TRANSFERED TO BED. HE HAD SEVERAL LOOSE STOOLS THIS SHIFT. HIS ROSALES WAS REMOVED THIS AFTERNOON. HE HAS NOT VOIDED YET THIS SHIFT. HE WAS HYPOTENSIVE. FLUID BOLIS GIVEN. WILL BLADDER SCAN ONCE PT IS BACK IN BED. HE IS CURRENTLY IN THE CHAIR AND CALL LIGHT IS WITHIN REACH.
[2022-09-25 05:42] LABS: Albumin, Blood 2.1 g/dL (3.4-5.0); Anion Gap 7 mmol/L (6-16); Blood Urea Nitrogen 119 mg/dL (8-24); Bun/Creatinine Ratio 56.7 (12.0-20.0); CO2, Blood 22 mmol/L (21-32); Calcium, Blood 8.6 mg/dL (8.5-10.1); Chloride, Blood 103 mmol/L (98-108); Glomerular Filtration Rate 30 (60-); Glucose, Blood 231 mg/dL (70-99); Phosphorus, Blood 4.4 mg/dL (2.5-4.9); Sodium, Blood 132 mmol/L (136-145)
--- NOTE | 2022-09-25 07:27 | NUR ---
SHIFT SUMMARY; NO ACUTE CHANGES OVERNIGHT. THE PT HAD A ROSALES DC'D YESTERDAY AFTERNOON AROUND 1200 AND HAD NO URINE OUTPUT ALL LAST NIGHT. I BLADDDER SCANNED HIM AROUND 2230 AND HE HAD 160MLS, REBLADDER SCANNNED HIM AROUND 0500 AND HE HAD 497MLS IN HIS BLADDER, CALLED DR MAGANA AND GOT AN ORDER TO STRAIGHT CATH THE PT. THE PT IS ON 2L NC WITH O2 SAT GREATER THAN 92%. THE PT DENIES ANY SOB, PAIN, CHEST PAIN OR PRESSURE THIS SHIFT. CURRENTLY THE PT IS RESTING IN BED WITH THE BED IN THE LOWEST POSITION AND THE CALL LIGHT AT THE BEDSIDE.
--- NOTE | 2022-09-25 11:30 | NUR ---
PT/OT IN WORKING WITH PATIENT AT THIS TIME. PT WAS PRE-MEDICATED WITH PAIN MEDICATION BEFORE THERAPY. RN REPORTS PT HAD AN EMOTIONAL MORNING AND ONCE HIS WOIFE ARRIVED, HIS MOOD IMPROVED. WILL PLAN TO FOLLOW UP LATER TODAY.
[2022-09-25 15:28] LABS: Bun/Creatinine Ratio 55.3 (12.0-20.0); Creatinine, Blood 2.06 mg/dL (0.60-1.20); Potassium, Blood 3.2 mmol/L (3.5-5.5)
--- NOTE | 2022-09-25 18:18 | NUR ---
SHIFT SUMMARY PT A&O X 2-3. IS FORGETFUL & CONFUSED AT TIMES. AT BEGINNING OF SHIFT WAS EMOTIONAL & TEARFUL STATING HIS WAS NO LONGER COMMUNICATING WITH HIM. SHE ARRIVED AT ABOUT 9:30 AM AND HAS BEEN AT HIS BEDSIDE MAJORITY OF SHIFT. ONCE SHE ARRIVED HE STABILIZED EMOTIONALLY. HE PARTICIPATED WITH OT & PT THEY CO-TREATED PT. PT SAT UP IN CHAIR FOR MOST OF LATE AM & EARLY AFTERNOON. LIFT WAS USED TO PLACE PT BACK TO BED, IS OTHERWISE MAX ASSIST X 3 WITH WALKER & GB. MEPIPLEX PLACED ON COCCYX. SMALL OPEN AREA. WAYNE AREA IS REDDENED & RAW APPEARING. INCONTINENT OF STOOL. PT BLADDER SCANNED SHOWING RETAINED URINE IN BLADDER. PT STATES HE NEEDS TO PEE BUT JUST CAN'T. STRAIGHT CATHED PT WITH 14 CITIZEN OF [place] F/C USING LIDOCAINE JELLY WITH IMMEDIATE RETURN OF 800MLS OF YELLOW URINE. PT STATES IMMEDIATE RELIEF. LEFT CATHETER IN PLACE ATTACHED TO BAG & USED A STATLOCK ATTACHED TO R THIGH. APPETITE IS GOOD WITH ENCOURAGEMENT. BG'S COVERED WITH INSULIN PER EMAR. BP'S REMAIN SOFT THOUGH STABLE. PLAN IS FOR SNF PLACEMENT UPON DC.
[2022-09-26 05:28] LABS: BASOPHILS ABSOLUTE AUTO 0.01 K/mm3 (0.00-0.23); BASOPHILS PERCENT AUTO 0 % (0-2); EOSINOPHILS PERCENT AUTO 0 % (0-6); Hematocrit 24.8 % (37.0-53.0); Hemoglobin 8.1 g/dL (13.5-17.5); IMMATURE GRAN ABSOLUTE AUTO 0.14 K/mm3 (0.00-0.10); IMMATURE GRAN PERCENT AUTO 1 % (0-1); LYMPHOCYTES ABSOLUTE AUTO 0.56 K/mm3 (0.84-5.20); LYMPHOCYTES PERCENT AUTO 5 % (21-46); MONOCYTES ABSOLUTE AUTO 0.84 K/mm3 (0.16-1.47); MONOCYTES PERCENT AUTO 7 % (4-13); Mean Corpuscular HGB 27.5 pg (26.0-34.0); Mean Corpuscular HGB Conc 32.7 g/dL (31.5-36.5); Mean Corpuscular Volume 84 fL (80-100); Mean Platelet Volume 9.7 fL (9.1-12.4); NEUTROPHILS ABSOLUTE AUTO 10.37 K/mm3 (1.96-9.15); NEUTROPHILS PERCENT AUTO 87 % (41-73); NRBC ABSOLUTE 0.02 K/mm3 (0.00-0.02); NRBC Auto 0.2 /100 WBC (0.0-0.2); Platelet Count 515 K/mm3 (150-400); RDW Coefficient Variation 18.9 % (11.7-14.2); RDW Standard Deviation 57.7 fL (35.1-46.3); Red Blood Cell Count 2.95 M/mm3 (4.30-5.90); White Blood Cell Count 11.92 K/mm3 (4.00-11.30)
--- NOTE | 2022-09-26 06:10 | NUR ---
SHIFT SUMMARY; NO ACUTE CHANGES OVERNIGHT. THE PT IS AXO X3-4. THE PT HAS BEEN RESTING IN BED FOR THE ENTIRETY OF THE NIGHT. TELE IS IN PLACE, A/V PACED IN THE 70'S. THE PT'S ROSALES IS PATENT AND DRAINING TO GRAVITY. THE PT DENIES ANY PAIN, SOB, CHEST PAIN/PRESSURE OR N/V. THE PTS BELLY APPEARS BLOATED THIS EVENING, BOWEL TONES ARE PRESENT AND THE PT DENIES ANY PAIN WITH PALPATION. CURRENTLY THE PT IS RESTING IN BED WITH THE BED IN THE LOWEST POSITION AND THE CALL LIGHT AT BEDSIDE.
[2022-09-26 06:26] LABS: Anion Gap 6 mmol/L (6-16); Blood Urea Nitrogen 102 mg/dL (8-24); Bun/Creatinine Ratio 62.2 (12.0-20.0); CO2, Blood 19 mmol/L (21-32); Calcium, Blood 8.9 mg/dL (8.5-10.1); Chloride, Blood 112 mmol/L (98-108); Creatinine, Blood 1.64 mg/dL (0.60-1.20); Glomerular Filtration Rate 41 (60-); Glucose, Blood 144 mg/dL (70-99); Phosphorus, Blood 4.1 mg/dL (2.5-4.9); Potassium, Blood 3.8 mmol/L (3.5-5.5); Sodium, Blood 137 mmol/L (136-145)
[2022-09-26 11:49] LABS: Vancomycin, Trough 28.6 ug/mL (5.0-10.0)
[2022-09-26] MEDS ORDERED: AZTREONAM IV (11:55)
[2022-09-26] MEDS ORDERED: HYDHCL25 (11:56)
[2022-09-26] MEDS ORDERED: FURO40 PO (11:56)
[2022-09-26] MEDS ORDERED: HUMALOG KW100 UNIT/1 SC (11:57)
[2022-09-26] MEDS ORDERED: HYDHCL25 PO (11:57)
[2022-09-26] MEDS ORDERED: MIDO5 PO (11:58)
[2022-09-26 11:59] LABS: Influenza A, PCR NEGATIVE (NEGATIVE); Influenza B, PCR NEGATIVE (NEGATIVE); Resp Syncytial Virus, PCR NEGATIVE (NEGATIVE); SARS-Cov-2 (COVID-19) PCR, MMC NEGATIVE (NEGATIVE)
[2022-09-26] MEDS ORDERED: VANCOMYCIN HCL1 G1 IV (11:59)
[2022-09-26] MEDS ORDERED: Prednisone10 MG PO (11:59)
[2022-09-26] MEDS ORDERED: SENN187 PO (11:59)
--- NOTE | 2022-09-26 15:16 | NUR ---
SUPPORTIVE WITH TO PT AND HIS SPOUSE. PT IS SCHEDULED TO BE DCD TODAY AT 1600 TO GO TO [facility] FOR REHAB. PT IS AT THE BEDSIDE AND PT JUST HAD POWERPICC PLACED. PT IS VERY ANXIOUS AND CONTINUES TO HAVE DIFF WITH MEMORY RECALL. PT ANXIOUS ABOUT GETTING BACK TO HIS BASELINE AND IS HE WILL BE ABLE TO SLEEP AT NIGHT. REASSUED THE PT THAT HE SHOUYLDNT HAVE ANY TROUBLES SLEEPING HER HASNT HAD ANY ISSUES WHILE HERE IN THE HOSPITAL. REASSURED HIM THAT BY GOING TO [facility] FOR DAILY THERAPY IS A GOOD PLAN FOR HIS TO REGAIN HIS STRENGTH WITH THE ULTIMATE GOAL OF RETURNING TO HIS BASELINE. THIS SEEMS TO REASSURE THE PT, PT ASKING IF PT HAS MEDICATIONS FOR ANXIETY-SPOKE TO PT NURSE THERE IS ATARAX ORDERED AND SHE WILL ADMINISTER. MELANY PT GOOD LUCK AND HE IS APPRECIATIVE FOR MY VISIT.
--- NOTE | 2022-09-26 16:44 | NUR ---
Patient ready to discharge to SNF today. COVID test negative. Powerglide placed for long-term IV ABX. Patient transported via [facility] to [facility] today at 1615.
== END 2022-09-26 16:16 | DRG 918 ==
LOC: ER 19:03 → ICUW 19:04 → MEDS 09-17 07:35 → ICUW 09-17 07:35 → MEDS 09-17 07:35 → ICUW 09-17 07:36 → MEDS 09-18 20:46
PROVIDERS: Family Medicine; Internal Medicine; Physician Assistant; Student in an Organized Health Care Education/Training Program; ADMIT Internal Medicine
PROC: 3E033XZ Introduction of Vasopressor into Peripheral Vein, Percutaneous Approach (ICD-10-PCS; principal; 2022-09-17)
DX: T43.211A Poisoning by selective serotonin and norepinephrine reuptake inhibitors, accidental (unintentional), initial encounter (principal); I50.22 Chronic systolic (congestive) heart failure; I13.0 Hypertensive heart and chronic kidney disease with heart failure and stage 1 through stage 4 chronic kidney disease, or unspecified chronic kidney disease; J84.9 Interstitial pulmonary disease, unspecified; I50.32 Chronic diastolic (congestive) heart failure; N17.9 Acute kidney failure, unspecified; Z20.822 Contact with and (suspected) exposure to COVID-19; R94.31 Abnormal electrocardiogram [ECG] [EKG]; E83.41 Hypermagnesemia; I95.9 Hypotension, unspecified; F03.90 Unspecified dementia, unspecified severity, without behavioral disturbance, psychotic disturbance, mood disturbance, and anxiety; E78.5 Hyperlipidemia, unspecified; N18.30 Chronic kidney disease, stage 3 unspecified; E11.22 Type 2 diabetes mellitus with diabetic chronic kidney disease; D63.1 Anemia in chronic kidney disease; M19.041 Primary osteoarthritis, right hand; M19.042 Primary osteoarthritis, left hand; F41.9 Anxiety disorder, unspecified; Z95.0 Presence of cardiac pacemaker; Z98.890 Other specified postprocedural states; Z88.0 Allergy status to penicillin; Z88.8 Allergy status to other drugs, medicaments and biological substances; Z79.01 Long term (current) use of anticoagulants; Z79.4 Long term (current) use of insulin; Z79.899 Other long term (current) drug therapy; X58.XXXA Exposure to other specified factors, initial encounter
CPT/HCPCS: 0241U; 36415; 51702; 51798; 73130; 80048; 80053; 80069; 80202; 80400; 81003; 82533; 82947; 83735; 83880; 84100; 84145; 84443; 84550; 85025; 85651; 86140; 87040; 87493; 93005; 93010; 93970; 94760; 96361; 96365; 97110; 97112; 97116; 97129; 97130; 97161; 97166; 97530; 97535; 99285-25; A9270; C1751; J0610; J0834; J1650; J1815; J3010; J3370; J7030; J7040; J7050; J7060; J7512

== ENCOUNTER 2022-11-12 05:35 | Day surgery (SDC) | payer MEDICARE ==
[~2022-11-12 05:35] MED LIST changes: +AZTREONAM IV; +ELIQUIS2.5 MG PO; +ENTRESTO 49 MG1 EACH PO; +HUMALOG KW100 UNIT/1 SC; +HYDHCL25; +HYDHCL25 PO; +MIDO5 PO; +Prednisone10 MG PO; +SENN187 PO; +TRAZ50 PO; +VANCOMYCIN HCL1 G1 IV
== END 2022-11-12 22:54 | disposition home or self-care (01) ==
LOC: WOUND 05:35
DX: E11.621 Type 2 diabetes mellitus with foot ulcer (principal); L97.415 Non-pressure chronic ulcer of right heel and midfoot with muscle involvement without evidence of necrosis; L89.612 Pressure ulcer of right heel, stage 2; E11.42 Type 2 diabetes mellitus with diabetic polyneuropathy
CPT/HCPCS: A9270

== ENCOUNTER 2022-11-21 01:20 | Day surgery (SDC) | payer MEDICARE | END 2022-11-23 22:35 | disposition home or self-care (01) | LOC: WOUND 01:20 | DX: E11.621 Type 2 diabetes mellitus with foot ulcer (principal); L97.512 Non-pressure chronic ulcer of other part of right foot with fat layer exposed; L89.613 Pressure ulcer of right heel, stage 3; E11.42 Type 2 diabetes mellitus with diabetic polyneuropathy; I50.9 Heart failure, unspecified | CPT/HCPCS: A9270; G0463 ==

== ENCOUNTER 2022-11-27 02:48 | Day surgery (SDC) | payer MEDICARE | END 2022-11-27 23:22 | disposition home or self-care (01) | LOC: WOUND 02:48 | PROC: 0JBQ0ZZ Excision of Right Foot Subcutaneous Tissue and Fascia, Open Approach (ICD-10-PCS; principal; 2022-11-27) | DX: E11.621 Type 2 diabetes mellitus with foot ulcer (principal); L97.415 Non-pressure chronic ulcer of right heel and midfoot with muscle involvement without evidence of necrosis; E11.42 Type 2 diabetes mellitus with diabetic polyneuropathy | CPT/HCPCS: 87071; 87075; 87076; 87077; 87185; 87186; 87205; A9270; G0463 ==

== ENCOUNTER 2022-12-10 03:45 | Day surgery (SDC) | payer MEDICARE | END 2022-12-10 22:43 | disposition home or self-care (01) | LOC: WOUND 03:45 | DX: E11.621 Type 2 diabetes mellitus with foot ulcer (principal); L89.613 Pressure ulcer of right heel, stage 3; E11.42 Type 2 diabetes mellitus with diabetic polyneuropathy | CPT/HCPCS: A9270 ==

== ENCOUNTER → 2022-12-17 | Day surgery (SDC) | payer MEDICARE | LOC: WOUND 03:17 | DX: L89.613 Pressure ulcer of right heel, stage 3 (principal); E11.621 Type 2 diabetes mellitus with foot ulcer; L97.513 Non-pressure chronic ulcer of other part of right foot with necrosis of muscle; L89.892 Pressure ulcer of other site, stage 2; L97.519 Non-pressure chronic ulcer of other part of right foot with unspecified severity; E11.42 Type 2 diabetes mellitus with diabetic polyneuropathy | CPT/HCPCS: G0463 ==

== ENCOUNTER 2023-01-07 04:41 | Day surgery (SDC) | payer MEDICARE | END 2023-01-07 22:35 | disposition home or self-care (01) | LOC: WOUND 04:41 | DX: E11.621 Type 2 diabetes mellitus with foot ulcer (principal); E11.42 Type 2 diabetes mellitus with diabetic polyneuropathy; L89.613 Pressure ulcer of right heel, stage 3; M79.671 Pain in right foot; J84.9 Interstitial pulmonary disease, unspecified | CPT/HCPCS: 71046; 73630; A9270 ==

== ENCOUNTER 2023-01-14 02:30 | Day surgery (SDC) | payer MEDICARE | END 2023-01-14 22:46 | disposition home or self-care (01) | LOC: WOUND 02:30 | DX: E11.621 Type 2 diabetes mellitus with foot ulcer (principal); I50.9 Heart failure, unspecified; Z79.01 Long term (current) use of anticoagulants; E11.42 Type 2 diabetes mellitus with diabetic polyneuropathy; L89.613 Pressure ulcer of right heel, stage 3; I87.2 Venous insufficiency (chronic) (peripheral) | CPT/HCPCS: A9270 ==

== ENCOUNTER 2023-01-21 04:11 | Day surgery (SDC) | payer MEDICARE | END 2023-01-21 22:45 | disposition home or self-care (01) | LOC: WOUND 04:11 | DX: E11.621 Type 2 diabetes mellitus with foot ulcer (principal); L97.412 Non-pressure chronic ulcer of right heel and midfoot with fat layer exposed; L89.613 Pressure ulcer of right heel, stage 3; E11.42 Type 2 diabetes mellitus with diabetic polyneuropathy | CPT/HCPCS: A9270; G0463 ==

== ENCOUNTER 2023-01-28 01:28 | Day surgery (SDC) | payer MEDICARE | END 2023-01-28 23:10 | disposition home or self-care (01) | LOC: WOUND 01:28 | DX: E11.621 Type 2 diabetes mellitus with foot ulcer (principal); I87.2 Venous insufficiency (chronic) (peripheral); L89.613 Pressure ulcer of right heel, stage 3; E11.42 Type 2 diabetes mellitus with diabetic polyneuropathy ==

== ENCOUNTER 2023-02-04 02:58 | Day surgery (SDC) | payer MEDICARE | END 2023-02-04 22:35 | disposition home or self-care (01) | LOC: WOUND 02:58 | DX: E11.621 Type 2 diabetes mellitus with foot ulcer (principal); L97.512 Non-pressure chronic ulcer of other part of right foot with fat layer exposed; E11.42 Type 2 diabetes mellitus with diabetic polyneuropathy; I50.9 Heart failure, unspecified ==

== ENCOUNTER 2023-02-11 02:29 | Day surgery (SDC) | payer MEDICARE | END 2023-02-11 22:43 | disposition home or self-care (01) | LOC: WOUND | DX: E11.621 Type 2 diabetes mellitus with foot ulcer (principal); I87.2 Venous insufficiency (chronic) (peripheral); L89.613 Pressure ulcer of right heel, stage 3; E11.42 Type 2 diabetes mellitus with diabetic polyneuropathy | CPT/HCPCS: A9270 ==

== ENCOUNTER 2023-02-18 05:05 | Day surgery (SDC) | payer MEDICARE | END 2023-02-18 22:41 | disposition home or self-care (01) | LOC: WOUND 05:05 | DX: L89.613 Pressure ulcer of right heel, stage 3 (principal); E11.621 Type 2 diabetes mellitus with foot ulcer; E11.42 Type 2 diabetes mellitus with diabetic polyneuropathy; I50.9 Heart failure, unspecified | CPT/HCPCS: G0463 ==

== ENCOUNTER 2023-02-25 02:50 | Day surgery (SDC) | payer MEDICARE | END 2023-02-25 22:42 | disposition home or self-care (01) | LOC: WOUND 02:50 | DX: E11.621 Type 2 diabetes mellitus with foot ulcer (principal); L97.412 Non-pressure chronic ulcer of right heel and midfoot with fat layer exposed; I87.2 Venous insufficiency (chronic) (peripheral); E11.42 Type 2 diabetes mellitus with diabetic polyneuropathy | CPT/HCPCS: A9270 ==

== ENCOUNTER 2023-03-25 04:43 | Day surgery (SDC) | payer MEDICARE | END 2023-03-25 22:39 | disposition home or self-care (01) | LOC: WOUND 04:43 | DX: E11.621 Type 2 diabetes mellitus with foot ulcer (principal); L97.412 Non-pressure chronic ulcer of right heel and midfoot with fat layer exposed; L89.623 Pressure ulcer of left heel, stage 3; S50.311A Abrasion of right elbow, initial encounter; E11.42 Type 2 diabetes mellitus with diabetic polyneuropathy; X58.XXXA Exposure to other specified factors, initial encounter | CPT/HCPCS: A9270 ==

== ENCOUNTER 2023-04-10 00:30 | Day surgery (SDC) | payer MEDICARE | END 2023-04-10 22:43 | disposition home or self-care (01) | LOC: WOUND 00:30 | DX: E11.621 Type 2 diabetes mellitus with foot ulcer (principal); L97.412 Non-pressure chronic ulcer of right heel and midfoot with fat layer exposed; L89.613 Pressure ulcer of right heel, stage 3; J84.9 Interstitial pulmonary disease, unspecified; I50.9 Heart failure, unspecified; E11.622 Type 2 diabetes mellitus with other skin ulcer; E11.42 Type 2 diabetes mellitus with diabetic polyneuropathy; S50.311A Abrasion of right elbow, initial encounter; X58.XXXA Exposure to other specified factors, initial encounter; Z99.81 Dependence on supplemental oxygen | CPT/HCPCS: G0463 ==

== ENCOUNTER 2023-04-17 02:31 | Day surgery (SDC) | payer MEDICARE | END 2023-04-17 22:40 | disposition home or self-care (01) | LOC: WOUND 02:31 | DX: E11.621 Type 2 diabetes mellitus with foot ulcer (principal); E11.622 Type 2 diabetes mellitus with other skin ulcer; L97.412 Non-pressure chronic ulcer of right heel and midfoot with fat layer exposed; L89.613 Pressure ulcer of right heel, stage 3; S50.311D Abrasion of right elbow, subsequent encounter; J84.9 Interstitial pulmonary disease, unspecified; I50.9 Heart failure, unspecified; E11.42 Type 2 diabetes mellitus with diabetic polyneuropathy; Z99.81 Dependence on supplemental oxygen; X58.XXXD Exposure to other specified factors, subsequent encounter | CPT/HCPCS: G0463 ==

== ENCOUNTER 2023-04-22 05:20 | Day surgery (SDC) | payer MEDICARE | END 2023-04-22 22:46 | disposition home or self-care (01) | LOC: WOUND 05:20 | DX: E11.621 Type 2 diabetes mellitus with foot ulcer (principal); L97.412 Non-pressure chronic ulcer of right heel and midfoot with fat layer exposed; L89.613 Pressure ulcer of right heel, stage 3; I50.9 Heart failure, unspecified; J84.9 Interstitial pulmonary disease, unspecified; E11.622 Type 2 diabetes mellitus with other skin ulcer; E11.42 Type 2 diabetes mellitus with diabetic polyneuropathy; S51.001D Unspecified open wound of right elbow, subsequent encounter; X58.XXXD Exposure to other specified factors, subsequent encounter | CPT/HCPCS: A9270 ==

== ENCOUNTER 2023-04-29 02:52 | Day surgery (SDC) | payer MEDICARE | END 2023-04-29 22:42 | disposition home or self-care (01) | LOC: WOUND 02:52 | DX: E11.621 Type 2 diabetes mellitus with foot ulcer (principal); L97.412 Non-pressure chronic ulcer of right heel and midfoot with fat layer exposed; I50.9 Heart failure, unspecified; L89.613 Pressure ulcer of right heel, stage 3; E11.42 Type 2 diabetes mellitus with diabetic polyneuropathy; E11.622 Type 2 diabetes mellitus with other skin ulcer; J84.9 Interstitial pulmonary disease, unspecified | CPT/HCPCS: A9270; G0463 ==

== ENCOUNTER 2023-05-06 04:54 | Day surgery (SDC) | payer MEDICARE | END 2023-05-06 23:11 | disposition home or self-care (01) | LOC: WOUND 04:54 | DX: E11.621 Type 2 diabetes mellitus with foot ulcer (principal); L97.412 Non-pressure chronic ulcer of right heel and midfoot with fat layer exposed; E11.622 Type 2 diabetes mellitus with other skin ulcer; L89.613 Pressure ulcer of right heel, stage 3; S51.002D Unspecified open wound of left elbow, subsequent encounter; S01.312D Laceration without foreign body of left ear, subsequent encounter; X58.XXXD Exposure to other specified factors, subsequent encounter; E11.42 Type 2 diabetes mellitus with diabetic polyneuropathy; I50.9 Heart failure, unspecified | CPT/HCPCS: G0463 ==

== ENCOUNTER 2023-05-13 02:06 | Day surgery (SDC) | payer MEDICARE | END 2023-05-13 22:47 | disposition home or self-care (01) | LOC: WOUND 02:06 | DX: E11.621 Type 2 diabetes mellitus with foot ulcer (principal); L97.412 Non-pressure chronic ulcer of right heel and midfoot with fat layer exposed; I50.9 Heart failure, unspecified; S51.012A Laceration without foreign body of left elbow, initial encounter; E11.622 Type 2 diabetes mellitus with other skin ulcer; L89.613 Pressure ulcer of right heel, stage 3; E11.42 Type 2 diabetes mellitus with diabetic polyneuropathy; J84.9 Interstitial pulmonary disease, unspecified; Z99.81 Dependence on supplemental oxygen; X58.XXXA Exposure to other specified factors, initial encounter | CPT/HCPCS: A9270 ==

== ENCOUNTER 2023-05-20 06:19 | Day surgery (SDC) | payer MEDICARE | END 2023-05-20 22:48 | disposition home or self-care (01) | LOC: WOUND 06:19 | DX: E11.621 Type 2 diabetes mellitus with foot ulcer (principal); L97.412 Non-pressure chronic ulcer of right heel and midfoot with fat layer exposed; J84.9 Interstitial pulmonary disease, unspecified; Z99.81 Dependence on supplemental oxygen; I50.9 Heart failure, unspecified; E11.622 Type 2 diabetes mellitus with other skin ulcer; L89.613 Pressure ulcer of right heel, stage 3; E11.42 Type 2 diabetes mellitus with diabetic polyneuropathy; S51.012D Laceration without foreign body of left elbow, subsequent encounter; S01.312D Laceration without foreign body of left ear, subsequent encounter; X58.XXXD Exposure to other specified factors, subsequent encounter | CPT/HCPCS: A9270; G0463 ==

== ENCOUNTER → 2023-05-22 | Outpatient (CLI) | payer MEDICARE ==
[2023-05-22 19:13] LABS: Albumin, Blood 4.3 g/dL (3.4-5.0); Anion Gap 9 mmol/L (6-16); Blood Urea Nitrogen 122 mg/dL (8-24); Bun/Creatinine Ratio 75.8 (12.0-20.0); CO2, Blood 30 mmol/L (21-32); Calcium, Blood 9.7 mg/dL (8.5-10.1); Chloride, Blood 94 mmol/L (98-108); Creatinine, Blood 1.61 mg/dL (0.60-1.20); Glomerular Filtration Rate 42 (60-); Glucose, Blood 106 mg/dL (70-99); Phosphorus, Blood 4.7 mg/dL (2.5-4.9); Potassium, Blood 3.8 mmol/L (3.5-5.5); Sodium, Blood 133 mmol/L (136-145)
== END | disposition home or self-care (01) ==
LOC: LAB SHORT 17:19 → LAB 17:19
PROVIDERS: Internal Medicine Nephrology
DX: N18.30 Chronic kidney disease, stage 3 unspecified (principal); D63.1 Anemia in chronic kidney disease
CPT/HCPCS: 80069; 85018

== ENCOUNTER 2023-05-27 02:36 | Day surgery (SDC) | payer MEDICARE | END 2023-05-27 22:41 | disposition home or self-care (01) | LOC: WOUND 02:36 | DX: E11.621 Type 2 diabetes mellitus with foot ulcer (principal); L97.412 Non-pressure chronic ulcer of right heel and midfoot with fat layer exposed; J84.9 Interstitial pulmonary disease, unspecified; S51.012D Laceration without foreign body of left elbow, subsequent encounter; I50.9 Heart failure, unspecified; L89.613 Pressure ulcer of right heel, stage 3; E11.42 Type 2 diabetes mellitus with diabetic polyneuropathy; E11.622 Type 2 diabetes mellitus with other skin ulcer; Z99.81 Dependence on supplemental oxygen; X58.XXXD Exposure to other specified factors, subsequent encounter | CPT/HCPCS: A9270; G0463 ==

== ENCOUNTER → 2023-05-29 | Outpatient (CLI) | payer MEDICARE ==
[2023-06-05 07:12] LABS: HEMOGLOBIN A1C 7.1 % (4.8-5.6)
== END ==
LOC: LAB SHORT 15:11 → LAB 15:11
PROVIDERS: Family Medicine
DX: E11.621 Type 2 diabetes mellitus with foot ulcer (principal)
CPT/HCPCS: 83036

== ENCOUNTER 2023-06-03 01:56 | Day surgery (SDC) | payer MEDICARE | END 2023-06-03 22:34 | disposition home or self-care (01) | LOC: WOUND 01:56 | DX: E11.621 Type 2 diabetes mellitus with foot ulcer (principal); L89.613 Pressure ulcer of right heel, stage 3; E11.622 Type 2 diabetes mellitus with other skin ulcer; S51.001D Unspecified open wound of right elbow, subsequent encounter; E11.42 Type 2 diabetes mellitus with diabetic polyneuropathy | CPT/HCPCS: G0463 ==

== ENCOUNTER 2023-06-10 15:18 | Day surgery (SDC) | payer MEDICARE | END 2023-06-10 22:43 | disposition home or self-care (01) | LOC: WOUND 15:18 | DX: E11.621 Type 2 diabetes mellitus with foot ulcer (principal); L97.412 Non-pressure chronic ulcer of right heel and midfoot with fat layer exposed; S51.812D Laceration without foreign body of left forearm, subsequent encounter; I50.9 Heart failure, unspecified; J84.9 Interstitial pulmonary disease, unspecified; E11.42 Type 2 diabetes mellitus with diabetic polyneuropathy; E11.622 Type 2 diabetes mellitus with other skin ulcer; L89.613 Pressure ulcer of right heel, stage 3; Z99.81 Dependence on supplemental oxygen; X58.XXXD Exposure to other specified factors, subsequent encounter | CPT/HCPCS: A9270; G0463 ==

== ENCOUNTER 2023-06-18 02:56 | Day surgery (SDC) | payer MEDICARE | END 2023-06-18 22:55 | disposition home or self-care (01) | LOC: WOUND 02:56 | DX: L89.613 Pressure ulcer of right heel, stage 3 (principal); S51.812A Laceration without foreign body of left forearm, initial encounter; X58.XXXA Exposure to other specified factors, initial encounter; S51.001D Unspecified open wound of right elbow, subsequent encounter; X58.XXXD Exposure to other specified factors, subsequent encounter; E11.621 Type 2 diabetes mellitus with foot ulcer; E11.622 Type 2 diabetes mellitus with other skin ulcer; E11.42 Type 2 diabetes mellitus with diabetic polyneuropathy; I50.9 Heart failure, unspecified; Z79.01 Long term (current) use of anticoagulants | CPT/HCPCS: A9270 ==

== ENCOUNTER 2023-06-26 03:16 | Day surgery (SDC) | payer MEDICARE | END 2023-06-26 23:43 | disposition home or self-care (01) | LOC: WOUND 03:16 | DX: E11.621 Type 2 diabetes mellitus with foot ulcer (principal); L89.613 Pressure ulcer of right heel, stage 3; E11.622 Type 2 diabetes mellitus with other skin ulcer; S51.001D Unspecified open wound of right elbow, subsequent encounter; E11.42 Type 2 diabetes mellitus with diabetic polyneuropathy | CPT/HCPCS: G0463 ==

== ENCOUNTER 2023-07-02 01:07 | Day surgery (SDC) | payer MEDICARE | END 2023-07-02 22:40 | disposition home or self-care (01) | LOC: WOUND 01:07 | DX: E11.621 Type 2 diabetes mellitus with foot ulcer (principal); E11.622 Type 2 diabetes mellitus with other skin ulcer; L89.613 Pressure ulcer of right heel, stage 3; S51.001D Unspecified open wound of right elbow, subsequent encounter; E11.42 Type 2 diabetes mellitus with diabetic polyneuropathy; X58.XXXD Exposure to other specified factors, subsequent encounter | CPT/HCPCS: G0463 ==

== ENCOUNTER 2023-07-08 03:22 | Day surgery (SDC) | payer MEDICARE | END 2023-07-08 22:37 | disposition home or self-care (01) | LOC: WOUND 03:22 | DX: E11.621 Type 2 diabetes mellitus with foot ulcer (principal); L97.412 Non-pressure chronic ulcer of right heel and midfoot with fat layer exposed; L89.613 Pressure ulcer of right heel, stage 3; E11.622 Type 2 diabetes mellitus with other skin ulcer; J84.9 Interstitial pulmonary disease, unspecified; I50.9 Heart failure, unspecified; E11.42 Type 2 diabetes mellitus with diabetic polyneuropathy; S50.811D Abrasion of right forearm, subsequent encounter; S60.811D Abrasion of right wrist, subsequent encounter; Z99.81 Dependence on supplemental oxygen; X58.XXXD Exposure to other specified factors, subsequent encounter | CPT/HCPCS: G0463 ==

== ENCOUNTER → 2023-07-10 | Outpatient (CLI) | payer MEDICARE ==
[~2023-07-10] MED LIST changes: +8 HOUR ACETAMI650 MG PO; +B-121000 MC3 PO; +Bumetanide2 MG PO; -CYAN500; +Cellcept500 MG PO; +FERROUS GLUCON324 M7 PO; +ICAPS AREDS2 S1 EACH PO; +KLOR-CON 1010 ME9 PO; +METO2.5 PO; -METO5 PO; +MIDODRINE HCL10 M1 PO; +SILVADENE20 G8
[2023-07-14 00:11] LABS: CALCIUM, SERUM 9.8 mg/dL (8.6-10.2); CREATININE, SERUM 2.25 mg/dL (0.76-1.27); PHOSPHORUS, SERUM 4.5 mg/dL (2.8-4.1)
== END ==
LOC: LAB 17:40 → LAB SHORT 17:40
PROVIDERS: Internal Medicine Hematology & Oncology
DX: N18.30 Chronic kidney disease, stage 3 unspecified (principal)
CPT/HCPCS: 80069

== ENCOUNTER → 2023-07-13 | Outpatient (CLI) | payer MEDICARE ==
[2023-07-13 18:46] LABS: BASOPHILS ABSOLUTE AUTO 0.05 K/mm3 (0.00-0.23); BASOPHILS PERCENT AUTO 1 % (0-2); EOSINOPHILS ABSOLUTE AUTO 0.12 K/mm3 (0.00-0.68); EOSINOPHILS PERCENT AUTO 1 % (0-6); Hematocrit 42.1 % (37.0-53.0); Hemoglobin 14.3 g/dL (13.5-17.5); IMMATURE GRAN ABSOLUTE AUTO 0.04 K/mm3 (0.00-0.10); IMMATURE GRAN PERCENT AUTO 0 % (0-1); LYMPHOCYTES ABSOLUTE AUTO 0.77 K/mm3 (0.84-5.20); LYMPHOCYTES PERCENT AUTO 9 % (21-46); MONOCYTES ABSOLUTE AUTO 0.99 K/mm3 (0.16-1.47); MONOCYTES PERCENT AUTO 11 % (4-13); Mean Corpuscular HGB 29.5 pg (26.0-34.0); Mean Corpuscular Volume 87 fL (80-100); Mean Platelet Volume 11.2 fL (9.1-12.4); NEUTROPHILS ABSOLUTE AUTO 7.02 K/mm3 (1.96-9.15); NEUTROPHILS PERCENT AUTO 78 % (41-73); Platelet Count 277 K/mm3 (150-400); RDW Coefficient Variation 16.2 % (11.7-14.2); Red Blood Cell Count 4.84 M/mm3 (4.30-5.90); White Blood Cell Count 8.99 K/mm3 (4.00-11.30)
[2023-07-13 20:04] LABS: Percent Saturation 13.6 % (20.0-50.0)
== END | disposition home or self-care (01) ==
LOC: LAB 17:01 → LAB SHORT 17:01
PROVIDERS: Internal Medicine Hematology & Oncology
DX: D50.0 Iron deficiency anemia secondary to blood loss (chronic) (principal)
CPT/HCPCS: 83540; 83550; 85025

== ENCOUNTER 2023-07-17 02:57 | Day surgery (SDC) | payer MEDICARE | END 2023-07-17 22:46 | disposition home or self-care (01) | LOC: WOUND 02:57 | DX: E11.621 Type 2 diabetes mellitus with foot ulcer (principal); E11.622 Type 2 diabetes mellitus with other skin ulcer; L89.613 Pressure ulcer of right heel, stage 3; L98.499 Non-pressure chronic ulcer of skin of other sites with unspecified severity; E11.42 Type 2 diabetes mellitus with diabetic polyneuropathy; S51.001D Unspecified open wound of right elbow, subsequent encounter | CPT/HCPCS: G0463 ==

== ENCOUNTER 2023-07-24 01:28 | Day surgery (SDC) | payer MEDICARE | END 2023-07-24 22:44 | disposition home or self-care (01) | LOC: WOUND 01:28 | DX: E11.621 Type 2 diabetes mellitus with foot ulcer (principal); L97.412 Non-pressure chronic ulcer of right heel and midfoot with fat layer exposed; L89.613 Pressure ulcer of right heel, stage 3; J84.9 Interstitial pulmonary disease, unspecified; I50.9 Heart failure, unspecified; E11.622 Type 2 diabetes mellitus with other skin ulcer; S51.001D Unspecified open wound of right elbow, subsequent encounter; X58.XXXD Exposure to other specified factors, subsequent encounter; E11.42 Type 2 diabetes mellitus with diabetic polyneuropathy; Z99.81 Dependence on supplemental oxygen | CPT/HCPCS: G0463 ==

== ENCOUNTER 2023-07-31 04:04 | Day surgery (SDC) | payer MEDICARE | END 2023-07-31 23:17 | disposition home or self-care (01) | LOC: WOUND 04:04 | DX: E11.621 Type 2 diabetes mellitus with foot ulcer (principal); L97.412 Non-pressure chronic ulcer of right heel and midfoot with fat layer exposed; L89.613 Pressure ulcer of right heel, stage 3; J84.9 Interstitial pulmonary disease, unspecified; I50.9 Heart failure, unspecified; E11.622 Type 2 diabetes mellitus with other skin ulcer; S51.001D Unspecified open wound of right elbow, subsequent encounter; E11.42 Type 2 diabetes mellitus with diabetic polyneuropathy; X58.XXXD Exposure to other specified factors, subsequent encounter; Z99.81 Dependence on supplemental oxygen | CPT/HCPCS: A6213; G0463 ==

== ENCOUNTER 2023-08-07 01:30 | Day surgery (SDC) | payer MEDICARE | END 2023-08-07 22:42 | disposition home or self-care (01) | LOC: WOUND 01:30 | DX: E11.621 Type 2 diabetes mellitus with foot ulcer (principal); L97.512 Non-pressure chronic ulcer of other part of right foot with fat layer exposed; L89.613 Pressure ulcer of right heel, stage 3; E11.622 Type 2 diabetes mellitus with other skin ulcer; E11.42 Type 2 diabetes mellitus with diabetic polyneuropathy; S51.001D Unspecified open wound of right elbow, subsequent encounter; I50.9 Heart failure, unspecified | CPT/HCPCS: A6213; G0463 ==

== ENCOUNTER → 2023-08-19 | Outpatient (CLI) | payer MEDICARE ==
[2023-08-19 18:36] LABS: Albumin, Blood 3.6 g/dL (3.4-5.0); Anion Gap 12 mmol/L (6-16); Blood Urea Nitrogen 144 mg/dL (8-24); Bun/Creatinine Ratio 96.6 (12.0-20.0); CO2, Blood 29 mmol/L (21-32); Calcium, Blood 9.8 mg/dL (8.5-10.1); Chloride, Blood 83 mmol/L (98-108); Creatinine, Blood 1.49 mg/dL (0.60-1.20); Ferritin, Serum 671 ng/mL (26-388); Glomerular Filtration Rate 46 (60-); Glucose, Blood 201 mg/dL (70-99); Iron Serum 45 ug/dL (65-175); Percent Saturation 11.7 % (20.0-50.0); Phosphorus, Blood 3.9 mg/dL (2.5-4.9); Potassium, Blood 3.2 mmol/L (3.5-5.5); Sodium, Blood 124 mmol/L (136-145); Total Iron Binding Capacity 385 ug/dL (250-450)
== END | disposition home or self-care (01) ==
LOC: LAB SHORT 17:46 → LAB 17:46
PROVIDERS: Internal Medicine Nephrology
DX: N18.30 Chronic kidney disease, stage 3 unspecified (principal); D63.1 Anemia in chronic kidney disease; D51.8 Other vitamin B12 deficiency anemias; D50.9 Iron deficiency anemia, unspecified; D52.8 Other folate deficiency anemias; R76.9 Abnormal immunological finding in serum, unspecified; R94.5 Abnormal results of liver function studies; R94.6 Abnormal results of thyroid function studies
CPT/HCPCS: 80069; 82728; 83540; 83550; 85018

== ENCOUNTER 2023-08-21 01:56 | Day surgery (SDC) | payer MEDICARE | END 2023-08-21 22:56 | disposition home or self-care (01) | LOC: WOUND 01:56 | DX: E11.621 Type 2 diabetes mellitus with foot ulcer (principal); L97.412 Non-pressure chronic ulcer of right heel and midfoot with fat layer exposed; J84.9 Interstitial pulmonary disease, unspecified; I50.9 Heart failure, unspecified; E11.42 Type 2 diabetes mellitus with diabetic polyneuropathy; E11.622 Type 2 diabetes mellitus with other skin ulcer; L89.613 Pressure ulcer of right heel, stage 3; S51.001D Unspecified open wound of right elbow, subsequent encounter; X58.XXXD Exposure to other specified factors, subsequent encounter; Z99.81 Dependence on supplemental oxygen | CPT/HCPCS: G0463 ==

== ENCOUNTER → 2023-09-28 | Outpatient (CLI) | payer MEDICARE ==
[2023-09-28 19:49] LABS: Albumin, Blood 3.9 g/dL (3.4-5.0); Anion Gap 14 mmol/L (3-11); Blood Urea Nitrogen 110 mg/dL (8-24); Bun/Creatinine Ratio 76.4 (12.0-20.0); CO2, Blood 25 mmol/L (21-32); Calcium, Blood 9.3 mg/dL (8.5-10.1); Chloride, Blood 98 mmol/L (98-108); Creatinine, Blood 1.44 mg/dL (0.60-1.20); Glomerular Filtration Rate 48 (60-); Glucose, Blood 256 mg/dL (70-99); Phosphorus, Blood 4.9 mg/dL (2.5-4.9); Potassium, Blood 5.3 mmol/L (3.5-5.5); Sodium, Blood 132 mmol/L (136-145)
== END ==
LOC: LAB 16:00 → LAB SHORT 16:00
PROVIDERS: Internal Medicine Nephrology
DX: I12.9 Hypertensive chronic kidney disease with stage 1 through stage 4 chronic kidney disease, or unspecified chronic kidney disease (principal); N18.32 Chronic kidney disease, stage 3b; D63.1 Anemia in chronic kidney disease
CPT/HCPCS: 80069

== ENCOUNTER 2023-11-06 04:08 | Day surgery (SDC) | payer MEDICARE | END 2023-11-06 22:54 | disposition home or self-care (01) | LOC: WOUND 04:08 | DX: E11.621 Type 2 diabetes mellitus with foot ulcer (principal); L97.412 Non-pressure chronic ulcer of right heel and midfoot with fat layer exposed; E11.622 Type 2 diabetes mellitus with other skin ulcer; L97.822 Non-pressure chronic ulcer of other part of left lower leg with fat layer exposed; L89.152 Pressure ulcer of sacral region, stage 2; L89.613 Pressure ulcer of right heel, stage 3; S51.001D Unspecified open wound of right elbow, subsequent encounter; E11.42 Type 2 diabetes mellitus with diabetic polyneuropathy; X58.XXXD Exposure to other specified factors, subsequent encounter | CPT/HCPCS: A6213; G0463 ==

== ENCOUNTER 2023-11-13 05:24 | Day surgery (SDC) | payer MEDICARE | END 2023-11-13 22:36 | disposition home or self-care (01) | LOC: WOUND 05:24 | DX: E11.621 Type 2 diabetes mellitus with foot ulcer (principal); L97.412 Non-pressure chronic ulcer of right heel and midfoot with fat layer exposed; L89.613 Pressure ulcer of right heel, stage 3; E11.622 Type 2 diabetes mellitus with other skin ulcer; L97.822 Non-pressure chronic ulcer of other part of left lower leg with fat layer exposed; J84.9 Interstitial pulmonary disease, unspecified; I50.9 Heart failure, unspecified; Z99.81 Dependence on supplemental oxygen; E11.42 Type 2 diabetes mellitus with diabetic polyneuropathy; S51.001D Unspecified open wound of right elbow, subsequent encounter; X58.XXXD Exposure to other specified factors, subsequent encounter ==

== ENCOUNTER → 2023-12-21 | Outpatient (CLI) | payer MEDICARE ==
[~2023-12-21] MED LIST changes: +KERENDIA10 MG PO; +METO5 PO; +POTCHL20ER PO; +Seroquel Xr50 MG PO
[2023-12-21 19:06] LABS: Source, Urine Clean Catch
[2023-12-21 19:14] LABS: Appearance, Urine Clear (Clear); Bilirubin, Urine Neg (Neg); Blood, Urine Neg (Neg); Color, Urine Yellow (P-Yellow); Glucose Qualitative, Urine Neg (Neg); Ketones, Urine Neg (Neg); Leukocyte Esterase, Urine Neg (Neg); Nitrite, Urine Neg (Neg); Protein, Urine Neg (Neg); Urobilinogen, Urine NORM (Normal); pH, Urine 6.5 (5.0-8.0)
== END ==
LOC: LAB SHORT 14:27 → LAB 14:27
PROVIDERS: Family Medicine
DX: R82.90 Unspecified abnormal findings in urine (principal); R40.0 Somnolence
CPT/HCPCS: 81003

== ENCOUNTER → 2023-12-22 | Outpatient (CLI) | payer MEDICARE ==
[~2023-12-22] MED LIST changes: -KERENDIA10 MG PO; -METO5 PO; -POTCHL20ER PO; -Seroquel Xr50 MG PO
[2023-12-22 19:26] LABS: BASOPHILS ABSOLUTE AUTO 0.04 K/mm3 (0.00-0.23); BASOPHILS PERCENT AUTO 0 % (0-2); EOSINOPHILS ABSOLUTE AUTO 0.11 K/mm3 (0.00-0.68); EOSINOPHILS PERCENT AUTO 1 % (0-6); Hematocrit 37.5 % (37.0-53.0); Hemoglobin 11.9 g/dL (13.5-17.5); IMMATURE GRAN ABSOLUTE AUTO 0.08 K/mm3 (0.00-0.10); IMMATURE GRAN PERCENT AUTO 1 % (0-1); LYMPHOCYTES ABSOLUTE AUTO 0.35 K/mm3 (0.84-5.20); LYMPHOCYTES PERCENT AUTO 3 % (21-46); MONOCYTES ABSOLUTE AUTO 1.06 K/mm3 (0.16-1.47); MONOCYTES PERCENT AUTO 9 % (4-13); Mean Corpuscular HGB 28.2 pg (26.0-34.0); Mean Corpuscular HGB Conc 31.7 g/dL (31.5-36.5); Mean Corpuscular Volume 89 fL (80-100); Mean Platelet Volume 11.6 fL (9.1-12.4); NEUTROPHILS ABSOLUTE AUTO 9.99 K/mm3 (1.96-9.15); NEUTROPHILS PERCENT AUTO 86 % (41-73); Platelet Count 268 K/mm3 (150-400); RDW Coefficient Variation 17.7 % (11.7-14.2); RDW Standard Deviation 57.5 fL (35.1-46.3); Red Blood Cell Count 4.22 M/mm3 (4.30-5.90); White Blood Cell Count 11.63 K/mm3 (4.00-11.30)
[2023-12-22 19:58] LABS: Albumin, Blood 3.5 g/dL (3.4-5.0); Albumin/Globulin Ratio 1.2 (0.8-1.8); Bilirubin, Total 1.6 mg/dL (0.1-1.0); Bun/Creatinine Ratio 107.3 (12.0-20.0); Calcium, Blood 9.5 mg/dL (8.5-10.1); Creatinine, Blood 1.37 mg/dL (0.60-1.20); Globulin, Blood 2.9 g/dL (2.2-4.0); Potassium, Blood 2.7 mmol/L (3.5-5.5); Total Protein, Blood 6.4 g/dL (6.4-8.2)
== END | disposition home or self-care (01) ==
LOC: LAB SHORT 18:10 → LAB 18:10
PROVIDERS: Family Medicine
DX: N18.30 Chronic kidney disease, stage 3 unspecified (principal); D63.1 Anemia in chronic kidney disease
CPT/HCPCS: 80053; 85025

== ENCOUNTER 2023-12-28 11:39 | Inpatient (IN) | payer MEDICARE ==
[~2023-12-28] VITALS: Ht 182.9 cm; Wt 81.7 kg
[2023-12-28] MEDS ORDERED: NS 1,000 ML IV SCH (12:00)
[2023-12-28 12:28] LABS: BASOPHILS ABSOLUTE AUTO 0.06 K/mm3 (0.00-0.23); BASOPHILS PERCENT AUTO 1 % (0-2); EOSINOPHILS ABSOLUTE AUTO 0.21 K/mm3 (0.00-0.68); EOSINOPHILS PERCENT AUTO 3 % (0-6); Hematocrit 38.7 % (37.0-53.0); Hemoglobin 12.1 g/dL (13.5-17.5); IMMATURE GRAN ABSOLUTE AUTO 0.01 K/mm3 (0.00-0.10); IMMATURE GRAN PERCENT AUTO 0 % (0-1); LYMPHOCYTES ABSOLUTE AUTO 0.54 K/mm3 (0.84-5.20); LYMPHOCYTES PERCENT AUTO 8 % (21-46); MONOCYTES ABSOLUTE AUTO 0.78 K/mm3 (0.16-1.47); MONOCYTES PERCENT AUTO 11 % (4-13); Mean Corpuscular HGB 28.4 pg (26.0-34.0); Mean Corpuscular HGB Conc 31.3 g/dL (31.5-36.5); Mean Corpuscular Volume 91 fL (80-100); Mean Platelet Volume 10.7 fL (9.1-12.4); NEUTROPHILS ABSOLUTE AUTO 5.46 K/mm3 (1.96-9.15); NEUTROPHILS PERCENT AUTO 78 % (41-73); Platelet Count 248 K/mm3 (150-400); RDW Coefficient Variation 18.1 % (11.7-14.2); RDW Standard Deviation 59.8 fL (35.1-46.3); Red Blood Cell Count 4.26 M/mm3 (4.30-5.90); White Blood Cell Count 7.06 K/mm3 (4.00-11.30)
[2023-12-28 12:33] LABS: Albumin, Blood 3.9 g/dL (3.4-5.0); Albumin/Globulin Ratio 1.3 (0.8-1.8); Bilirubin, Total 1.5 mg/dL (0.1-1.0); Bun/Creatinine Ratio 90.4 (12.0-20.0); Calcium, Blood 10.5 mg/dL (8.5-10.1); Creatinine, Blood 1.36 mg/dL (0.60-1.20); Globulin, Blood 2.9 g/dL (2.2-4.0); Potassium, Blood 3.9 mmol/L (3.5-5.5); Total Protein, Blood 6.8 g/dL (6.4-8.2)
[2023-12-28 14:05] LABS: Influenza A, PCR NEGATIVE (NEGATIVE); Influenza B, PCR NEGATIVE (NEGATIVE); Resp Syncytial Virus, PCR NEGATIVE (NEGATIVE); SARS-Cov-2 (COVID-19) PCR, MMC NEGATIVE (NEGATIVE)
[2023-12-28 16:52] LABS: Source, Urine Voided
[2023-12-28 16:54] LABS: Appearance, Urine Clear (Clear); Bilirubin, Urine Neg (Neg); Blood, Urine Neg (Neg); Color, Urine Yellow (P-Yellow); Glucose Qualitative, Urine Neg (Neg); Ketones, Urine Neg (Neg); Leukocyte Esterase, Urine Neg (Neg); Nitrite, Urine Neg (Neg); Protein, Urine Neg (Neg); Specific Gravity, Urine 1.005 (1.003-1.022); Urobilinogen, Urine NORM (Normal)
[2023-12-28] MEDS ORDERED: Acetaminophen 325 MG TABLET PO PRN (17:00)
[2023-12-28] MEDS ORDERED: Azithromycin 500 MG in NS 250 ML IV SCH (17:07)
[2023-12-28] MEDS ORDERED: POTCHL20ER PO (19:19)
[2023-12-28] MEDS ORDERED: KERENDIA10 MG PO (19:20)
[2023-12-28] MEDS ORDERED: FURO80 PO (19:22)
[2023-12-28] MEDS ORDERED: Seroquel Xr50 MG PO (19:25)
[2023-12-28] MEDS ORDERED: METO5 PO (19:26)
[2023-12-28] MEDS ORDERED: Midodrine 5 MG Tab PO SCH (20:00)
[2023-12-28 20:21] VITALS: BP 98/76
[2023-12-28] MEDS ORDERED: Insulin Human Lispro 100 Units/ML 3ML Syringe SC SCH (21:00)
[2023-12-28] MEDS ORDERED: Insulin Glargine-Yfgn 100 Unit/mL 3 ML SYR SC SCH (21:00)
[2023-12-28] MEDS ORDERED: LevoFLOXacin 750 MG/D5W 150ML 150 ML IV SCH (21:00)
[2023-12-28] MEDS ORDERED: QUEtiapine Fumarate 50 MG TAB PO SCH (21:00)
[2023-12-28] MEDS ORDERED: Apixaban 5 MG Tab PO SCH (21:00)
[2023-12-29] MEDS ORDERED: NS 250 ML IV PRN (00:45)
--- NOTE | 2023-12-29 02:27 | NUR ---
@1932 RECEIVED REPORT FROM [facility] AND [facility]. PT ARRIEVED TO MEDICAL UNIT 1950. PT IS CONFUSED, DX OF DEMENTIA, A&OX 1-2 AND CALLING FOR HIS DONYA. CALLED LM AT HS, THIS NURSE DID NOT HAVE TIME D/T HEAVY PT MED PASS [id number]. SKEIN YARN DRIERARIS ARDON COMPLETED THE INITIAL ASSESSMENT, AND NIKUNJ CAMPBELL COMPETED THE SKIN ASSESSMENT WITH THIS NURSE. PT'S BODY WOUND PICTURES ARE IN CHART: SCALY CALVES/ANKLES; SMALL SORE ON LEFT OUTER ANKLE; BRUISING T/O; RIGHT HEEL DRY; CRACKED/MEPILEX HEEL PROTECTOR APPLIED; LEFT OUTER TRICEP SKIN TEAR, XEROFORM APPLIED (SEE CHART MORE PICS AND INFO.) PT IS ON 4L OXYGEN VIA NC.IV LEFT FOREARM, SALINE LOCKED.SNACK AND FLUIDS GIVEN, PT.TAKES MEDS WHOLE WITH ASSIST TO HOLD THE CUP/STRAW. HOB>45 DEGREES. NO ACUTE EVENTS/DISTRESS DURING THIS SHIFT. BED AT LOWEST POSITION, BED ALAR FOR SAFETY. WILL HANDOFF TO THE INCOMIGN SHIFT NURSE.
[2023-12-29 02:46] VITALS: BP 96/68
[2023-12-29 05:40] LABS: Hematocrit 37.3 % (37.0-53.0); Hemoglobin 11.6 g/dL (13.5-17.5); Mean Corpuscular HGB 28.6 pg (26.0-34.0); Mean Corpuscular HGB Conc 31.1 g/dL (31.5-36.5); Mean Corpuscular Volume 92 fL (80-100); Mean Platelet Volume 11.2 fL (9.1-12.4); Platelet Count 201 K/mm3 (150-400); RDW Coefficient Variation 18.2 % (11.7-14.2); RDW Standard Deviation 61.1 fL (35.1-46.3); Red Blood Cell Count 4.05 M/mm3 (4.30-5.90)
[2023-12-29 05:59] LABS: Albumin, Blood 3.4 g/dL (3.4-5.0); Anion Gap 9 mmol/L (3-11); Blood Urea Nitrogen 115 mg/dL (8-24); Bun/Creatinine Ratio 91.3 (12.0-20.0); CO2, Blood 38 mmol/L (21-32); Calcium, Blood 9.5 mg/dL (8.5-10.1); Chloride, Blood 94 mmol/L (98-108); Creatinine, Blood 1.26 mg/dL (0.60-1.20); Glomerular Filtration Rate 56 (60-); Glucose, Blood 200 mg/dL (70-99); Phosphorus, Blood 3.4 mg/dL (2.5-4.9); Potassium, Blood 3.1 mmol/L (3.5-5.5); Sodium, Blood 138 mmol/L (136-145)
[2023-12-29 07:19] VITALS: BP 89/55
[2023-12-29] MEDS ORDERED: Misc. Capsule PO SCH (09:00)
[2023-12-29] MEDS ORDERED: Potassium Chloride 20 MEQ TabCR PO SCH (09:00)
[2023-12-29] MEDS ORDERED: Furosemide 80 MG Tab PO SCH (09:00)
[2023-12-29] MEDS ORDERED: Doxycycline Hyclate 100 MG TAB PO SCH (09:00)
[2023-12-29] MEDS ORDERED: Metolazone 5 MG Tab PO SCH (09:00)
[2023-12-29] MEDS ORDERED: Midodrine 5 MG Tab PO SCH (14:00)
[2023-12-29 15:48] VITALS: BP 95/68
[2023-12-29] MEDS ORDERED: Insulin Human Lispro 100 Units/ML 3ML Syringe SC SCH (16:30)
[2023-12-29] MEDS ORDERED: Atorvastatin 10 MG Tab PO SCH (18:00)
[2023-12-29 19:32] VITALS: BP 105/83
[2023-12-30 03:27] VITALS: BP 99/77
--- NOTE | 2023-12-30 04:24 | NUR ---
SHIFT SUMMARY PT. IS ALERT, ORIENTED X 1-3 SELF,PERSON,PLACE. PT.IS KIND, AND COOP WITH CARE, THANKING THE FLOOR STAFF FOR HIS CARE. AT HS PT.CALLING OUT HIS CYNDIE'S NAME. VSS. HS B. PT.CONTINUES TO HAVE LOOSE BM'S, DARK BROWN COLOR.ADDITIONALLY, DURING THE ATTEND CHANGES,HAS A BM AT THE SAME TIME, WHEN OPEN TO AIR. HOB>45 DEGREES, O2@4L DURING NOC SHIFT. WOUND DRESSINGS C/D/I. NO ACUTE EVENTS/DISTRESS NOTED DURING THIS SHIFT.HEEL PROTECTORS ON, HEELS FLOATED, BED AT THE LOWEST POSITION, BED ALARM FOR SAFETY. CALL LIGHT IN REACH.WILL HANDOFF TO THE INCOMING SHIFT NURSE.
[2023-12-30 05:28] LABS: Hematocrit 36.8 % (37.0-53.0); Hemoglobin 11.6 g/dL (13.5-17.5); Mean Corpuscular HGB 28.5 pg (26.0-34.0); Mean Corpuscular HGB Conc 31.5 g/dL (31.5-36.5); Mean Corpuscular Volume 90 fL (80-100); Mean Platelet Volume 10.7 fL (9.1-12.4); Platelet Count 181 K/mm3 (150-400); RDW Coefficient Variation 17.8 % (11.7-14.2); RDW Standard Deviation 58.8 fL (35.1-46.3); Red Blood Cell Count 4.07 M/mm3 (4.30-5.90); White Blood Cell Count 5.01 K/mm3 (4.00-11.30)
[2023-12-30 05:57] LABS: Albumin, Blood 3.5 g/dL (3.4-5.0); Anion Gap 10 mmol/L (3-11); Blood Urea Nitrogen 117 mg/dL (8-24); Bun/Creatinine Ratio 81.2 (12.0-20.0); CO2, Blood 38 mmol/L (21-32); Calcium, Blood 9.3 mg/dL (8.5-10.1); Chloride, Blood 91 mmol/L (98-108); Creatinine, Blood 1.44 mg/dL (0.60-1.20); Glomerular Filtration Rate 48 (60-); Glucose, Blood 245 mg/dL (70-99); Magnesium, Blood 2.2 mg/dL (1.6-2.4); Phosphorus, Blood 3.7 mg/dL (2.5-4.9); Potassium, Blood 3.2 mmol/L (3.5-5.5); Sodium, Blood 136 mmol/L (136-145)
--- NOTE | 2023-12-30 06:37 | NUR ---
PENDING C-DIFF LAB, CONTACT ISOLATION PRECAUTIONS/CART/SIGN BY THE DOOR IN PLACE
[2023-12-30 07:13] VITALS: BP 99/74
[2023-12-30] MEDS ORDERED: Potassium Chloride 20 MEQ TabCR PO ONE (07:50)
[2023-12-30] MEDS ORDERED: Furosemide 80 MG Tab PO SCH (09:00)
[2023-12-30] MEDS ORDERED: Losartan Potassium 25 MG Tab PO SCH (09:00)
[2023-12-30] MEDS ORDERED: Empagliflozin 10 MG TAB PO SCH (09:00)
[2023-12-30 12:19] LABS: C DIFFICILE DNA POSITIVE (Negative)
[2023-12-30 15:25] VITALS: BP 93/47
[2023-12-30 19:17] VITALS: BP 149/115
--- NOTE | 2023-12-30 19:29 | NUR ---
VITALS BLOOD PRESSURE IS ELEVATED PATIENT BECAME HIGHLY AGITATED WHEN THE BLOOD PRESSURE CUFF SQUEEZED HIS ARM.
--- NOTE | 2023-12-30 19:32 | NUR ---
report received verified, a/o x1 and has not been cooperative with care. pt was very aggressibve with assistant analyst changing. when pt was done he explained to me that he doesnt want to be man handled and he will do what ever is asked given the chance. pt up to chair with PT and is very happy, pt eating snack befor lunch. pt stayed up in chair with family all around showed he had great appitite and was constantly asking for liquids. i edc the family on fluid restrictions for comfort since pt is a DNR. family seems to understand. fsbs 375 Dr Grant notified insulin given and was increased. pt assisted back to bed and briefs changed. hearing aids being charged and pt now sleeping
[2023-12-30] MEDS ORDERED: Insulin Human Lispro 100 Units/ML 3ML Syringe SC ONE (20:10)
[2023-12-30 20:30] VITALS: BP 102/66
[2023-12-30] MEDS ORDERED: Insulin Glargine-Yfgn 100 Unit/mL 3 ML SYR SC SCH (21:00)
[2023-12-31 04:10] VITALS: BP 95/69
[2023-12-31 05:11] LABS: Hematocrit 36.8 % (37.0-53.0); Hemoglobin 11.6 g/dL (13.5-17.5); Mean Corpuscular HGB 28.5 pg (26.0-34.0); Mean Corpuscular HGB Conc 31.5 g/dL (31.5-36.5); Mean Corpuscular Volume 90 fL (80-100); Mean Platelet Volume 11.4 fL (9.1-12.4); Platelet Count 180 K/mm3 (150-400); RDW Coefficient Variation 17.6 % (11.7-14.2); RDW Standard Deviation 58.1 fL (35.1-46.3); Red Blood Cell Count 4.07 M/mm3 (4.30-5.90)
--- NOTE | 2023-12-31 05:31 | NUR ---
NOC SHIFT SUMMARY PT ORIENTED TO SELF AND OCCASIONALLY THAT HE IS IN A HOSPITAL. HE CALLS OUT FREQUENTLY, ASKING FOR HIS , NEEDING FREQUENT EMOTIONAL SUPPORT AND REORIENTATION. INCONT OF BOWEL: WOUNDS ON BUTTOCKS CLEANED AND DRESSING CHANGED. HEELS FLOATED ON PILLOWS AND PT WAS REPOSITIONED EVERY 2 HOURS. BEDTIME CBG WAS 448 AND MIXER OPERATOR VACUUM PAN SALT WAS NOTIFIED. RECIEVED ORDER TO GIVE 5U HUMALOG WITH BEDTIME LANTUS. PT DOES NOT REMEMBER HOW TO USE CALL LIGHT DESPITE FREQUENT REMINDERS. ROUNDING DONE EVERY 30-60 MINUTES.
[2023-12-31 05:38] LABS: Albumin, Blood 3.6 g/dL (3.4-5.0); Anion Gap 11 mmol/L (3-11); Blood Urea Nitrogen 109 mg/dL (8-24); Bun/Creatinine Ratio 81.3 (12.0-20.0); CO2, Blood 37 mmol/L (21-32); Calcium, Blood 9.5 mg/dL (8.5-10.1); Chloride, Blood 90 mmol/L (98-108); Creatinine, Blood 1.34 mg/dL (0.60-1.20); Glomerular Filtration Rate 52 (60-); Glucose, Blood 296 mg/dL (70-99); Magnesium, Blood 1.9 mg/dL (1.6-2.4); Phosphorus, Blood 3.4 mg/dL (2.5-4.9); Potassium, Blood 2.9 mmol/L (3.5-5.5); Sodium, Blood 135 mmol/L (136-145)
[2023-12-31 07:07] VITALS: BP 94/72
[2023-12-31] MEDS ORDERED: Potassium Chloride 20 MEQ TabCR PO ONE (08:00)
--- NOTE | 2023-12-31 14:57 | NUR ---
GOALS OF CARE MEETING LUIS ANTONIO WAS SLEEPING SITTING UPRIGHT IN HOSPITAL BED WITH HIS MOUTH GAPING OPEN, UPPER DENTURE FALLING OUT. , CYNDIE REPORTS HIS DENTURES STARTED NOT FITTING WELL THE LAST 6 MONTHS. CYNDIE ALSO REPORTS PT'S WT DECREASED FROM 260 LBS TO 170 LBS IN THE LAST 4 MTS THEN GAINED 20 LBS IN THE LAST MONTH LIKELY D/T ANASARCA. NOTED 3-4 WORD DYSPNEA WITH O2 VIA NC IN PLACE. DENIES SOB OR CP. PT IS [place] AND WEARS BILAT HEARING AIDS. PARTIALLY INTO THE VISIT, PT WOKE AND REMAINED ALERT FOR THE REST OF THIS VISIT. HE IS ORIENTED TO SELF AND OCCATIONALLY TO . LUIS ANTONIO ATTEMPTS TO DEFER ALL QUESTIONS TO CYNDIE. HE STATED HE HAS 3 CHILDREN AND DOESN'T RECALL THIER NAMES. AFTER 20-30 SECONDS HE WAS ABLE TO LIST HIS DTR CARMEN AND SON IVANA. CONFIRMS THEY ONLY HAVE 2 CHILDREN. NOT ORIENTED TO TIME/PLACE/SITUATION. PROVIDED WITH [address]EMENT[address] ROAD MAP AND CONSIDERING COMFORT CARE BOOKS. REVIEWED, ANSWERED QUESTIONS AND PROVIDED THERAPUTIC LISTENING. REPORTS [facility] WAS OUT TO EVALUATE PT FOR HOSPICE A COUPLE DAYS AGO AND SHE/PT WERE NOT READY FOR HOSPICE YET. AT CONCLUSION OF VISIT, REQUESTS HOSPICE. [facility]PO[facility] WITH [facility], CX APPT FOR TOMORROW 01/01/24 AND ALL FUTURE APPTS. SPOKE WITH SAM AT [facility], CX APPT FOR 01/05/[address] RAMOS. ALL APPT CHANGES WERE COMPLETED AT THE REQUEST OF PT'S HE WILL D/C HOME ON HOSPICE. COLABORATION WITH PROVIDER, DR. CARLIN. OBTAINED ORDERS TO D/C LAB AND THERAPY PT WILL BE D/C ON HOSPICE. UPDATES PROVIDED TO PRIMARY RN SHAY, CM NIKUNJ LUGO AND PHYSICAL THERAPIST KAL. PC TO REMAIN AVAILABLE NEEDED.
[2023-12-31 15:19] VITALS: BP 91/59
[2023-12-31] MEDS ORDERED: Potassium Chloride 20 MEQ TabCR PO SCH (18:00)
--- NOTE | 2023-12-31 18:21 | NUR ---
REPORT RECEIVED VERIFIED, PT A/O X1 VERY FORGETFUL BUT PLEASENT AND FOLLOWS COMMANDS IF INSTRUCTED TOO. FAMILY AT BEDSIDE, PALATIVE CARE INTO SPEAK WITH PT AND IS NOW GOING HOME ON HOSPICE TOMORROW. WAS GOING TO ATTEMPT PT SIT UP IN CHAIR AGAIN BUT PT SEEMS EXHAUSTED AND WANTING TO SLEEP TODAY, I EXPLAINED TO THE FAMILY THAT HE WAS UP ALL NIGHT AND WAS VERY TIRED. PT FEEDING SELF DINNER ALL THE WHILE YELLING OUT FOR , AFTER ATTEMPING TO CONSOLE ATTEMPS WERE UNSUCCESSFUL.
[2023-12-31 19:32] VITALS: BP 91/73
[2024-01-01 03:51] VITALS: BP 87/58
--- NOTE | 2024-01-01 06:50 | NUR ---
Patient alert and oriented x1-3, short term memory loss evident, VSS, tolerating
[2024-01-01 08:14] VITALS: BP 89/53
[2024-01-01] MEDS ORDERED: Furosemide 40 MG Tab PO SCH (09:00)
--- NOTE | 2024-01-01 15:01 | NUR ---
DISCHARGE NOTE: PATIENT PERPARED FOR DISCHARGE HOME; BATHED, DRESSED, AND IV REMOVED. HIS BELONGINGS WERE COLLECTED AND ACCOMPANIED BY HIS . MEDICAL TRANSPORT ARRIVED PROVIDED PAPERWORK AND PATIENT WAS TAKEN VIA [facility]. NO SIGNS OR SYMPTOMS OF DISTRESS WITH DISCHARGE.
--- NOTE | 2024-01-01 15:48 | NUR ---
SUPPORTIVE VISIT. PT'S CYNDIE EXPRESSING ANTICIPATORY GREIF. THERAPUTIC LISTENING PROVIDED. ADDITIONAL EDUCATION ON WHAT HOSPICE CARE WILL LOOK LIKE GOING HOME. NORMALIZED HER FEELINGS OF THE UNKNOWN. PC TO REMAIN AVAILABLE NEEDED.
== END 2024-01-01 14:21 | disposition hospice, home (50) | DRG 291 ==
LOC: ER 11:39 → MEDS 11:40 → ENPENDDIS 01-01 10:10 → MEDS 01-01 14:21
PROVIDERS: Emergency Medicine; Internal Medicine; ADMIT Internal Medicine
DX: I13.0 Hypertensive heart and chronic kidney disease with heart failure and stage 1 through stage 4 chronic kidney disease, or unspecified chronic kidney disease (principal); G92.8 Other toxic encephalopathy; I50.43 Acute on chronic combined systolic (congestive) and diastolic (congestive) heart failure; J96.21 Acute and chronic respiratory failure with hypoxia; J84.9 Interstitial pulmonary disease, unspecified; F05 Delirium due to known physiological condition; D84.821 Immunodeficiency due to drugs; Z51.5 Encounter for palliative care; Z66 Do not resuscitate; N18.30 Chronic kidney disease, stage 3 unspecified; D63.1 Anemia in chronic kidney disease; E11.22 Type 2 diabetes mellitus with diabetic chronic kidney disease; G47.00 Insomnia, unspecified; S91.301A Unspecified open wound, right foot, initial encounter; F03.90 Unspecified dementia, unspecified severity, without behavioral disturbance, psychotic disturbance, mood disturbance, and anxiety; E78.5 Hyperlipidemia, unspecified; Z85.038 Personal history of other malignant neoplasm of large intestine; Z86.79 Personal history of other diseases of the circulatory system; Z98.890 Other specified postprocedural states; Z95.0 Presence of cardiac pacemaker; Z87.891 Personal history of nicotine dependence; Z88.0 Allergy status to penicillin; Z88.8 Allergy status to other drugs, medicaments and biological substances; Z79.01 Long term (current) use of anticoagulants; Z79.899 Other long term (current) drug therapy; Z79.4 Long term (current) use of insulin; Z99.3 Dependence on wheelchair; Z99.81 Dependence on supplemental oxygen; T45.1X5A Adverse effect of antineoplastic and immunosuppressive drugs, initial encounter; R19.7 Diarrhea, unspecified
CPT/HCPCS: 0241U; 36415; 71045; 80053; 80069; 81003; 82947; 83036; 83735; 83880; 84145; 85025; 85027; 87324; 87493; 93005; 93010; 94760; 94762; 96361; 96365; 96375; 97110; 97162; 97530; 99285-25; A9270; C8929; G0378; J0456; J1815; J1956; J7030; J7050; Q9957